=== PATIENT | male | born 1960 | race Caucasian/White ===

== ENCOUNTER 2018-11-20 18:10 | Inpatient (IN) | payer OTHER ==
[2018-11-20] MEDS ORDERED: ONDANSETRON 4 MG/2 ML VIAL ONE (18:53)
[2018-11-20] MEDS ORDERED: NA CHLORIDE 0.9% 1,000 ML ONE ×2 (18:53→22:13)
[2018-11-20 19:16] LABS: Absolute Lymphocytes (CBC) 0.7 K/uL (0.7-4.9); Basophils % 0.8 % (0-1.3); Hematocrit 41.2 % (39.6-49.0); MPV 10.1 fL (7.6-11.3); RBC Red Blood Cell Count 4.27 M/uL (4.33-5.43)
[2018-11-20 19:25] LABS: Albumin 4.1 g/dL (3.4-5.0); Bilirubin Direct 0.3 mg/dL (0-0.2); Bilirubin Total 1.2 mg/dL (0.2-1.0); Potassium 4.3 mmol/L (3.5-5.1); Protein, Total 7.2 g/dL (6.4-8.2)
--- NOTE | 2018-11-20 19:52 | RAD REPORT ---
EXAM DESCRIPTION: CT - Stone Protocol - 11/20/2018 7:39 pm CLINICAL HISTORY: Flank pain. ABD PAIN COMPARISON: Abdomen Pelvis Wo Contrast dated 06/17/2016 TECHNIQUE: Axial images were obtained without oral or IV contrast. Lack of contrast limits solid org an and vascular assessment. The [id number] spans the entirety of the system partially obscuring uppermost abdomen and lung bases. Coronal reformatted images were obtained and reviewed. All CT scans are performed using dose optimization technique as appropriate and may include automated exposure control or mA/KV adjustment according to patient size. FINDINGS: Small left pleural effusion. Imaged portions of the liver and spleen show no suspicious findings on non-contrast imaging. The panc reas and adrenal glands are normal. No pathologic lymphadenopathy in the abdomen or pelvis. No urinary tract stones or obstructive uropathy. No bowel obstruction, free air, free fluid or abscess. Normal appendix noted. Mild lumbar degenerative changes. IMPRESSION: No urinary tract stones or obstructive uropathy.
--- NOTE | 2018-11-20 20:25 | ER ---
Nurse's Notes [facility] Name: Mc Reeder Age: 58 yrs Sex: Male : 1960 Arrival Date: 11/20/2018 Time: 18:13 Bed 18 Private MD: Gucci Anderson H Diagnosis: Epigastric pain;Abnormal serum enzyme levels Presentation: 11/20 18:25 Presenting complaint: Patient states: vomiting X 4 days, unable to tolerate fluids, iw can't hold hi pain medicine down, hx of chronic back pain, denies diarrhea, denies fever, +chills, dark urine yesterday, also c/o heartburn pain and gurgling in his stomach, c/o fatigue and general weakness. Transition of care: patient was not received from another setting of care. Onset of symptoms was November 16, 2018. Risk Assessment: Do you want to hurt yourself or someone else? Patient reports no desire to harm self or others. Initial Sepsis Screen: Does the patient meet any 2 criteria? HR > 90 bpm. No. Patient's initial sepsis screen is negative. Does the patient have a suspected source of infection? No. Patient's initial sepsis screen is negative. Care prior to arrival: None. 18:25 Method Of Arrival: Ambulatory iw 18:25 Acuity: JENNIFFER 3 iw Triage Assessment: 18:34 General: Appears in no apparent distress. Behavior is calm, cooperative, appropriate tw2 for age. Pain: Complains of pain in abdomen. GI: Reports lower abdominal pain, upper abdominal pain, nausea, vomiting. Historical: - Allergies: 18:30 Demerol; iw - Home Meds: 18:30 [place] 10-325 mg Oral tab 1 tab every 4 hours [Active]; tizanidine 4 mg Oral tab 1.5 iw tabs three times a day [Active]; Amitriptyline Oral once daily [Active]; - PMHx: 18:30 constipation; CVA; heart disease; High Cholesterol; Hypertension; MRSA; Myocardial iw infarction; Pneumonia; Severe Back Pain; - PSHx: 18:30 Heart stents; iw - Immunization history:: Adult Immunizations up to date. - Social history:: Smoking status: Patient/guardian denies using tobacco. - Ebola Screening: : Patient negative for fever greater than or equal to 101.5 degrees Fahrenheit, and additional compatible Ebola Virus Disease symptoms Patient denies exposure to infectious person Patient denies travel to an Ebola-affected area in the 21 days before illness onset No symptoms or risks identified at this time. Screenin:32 Abuse screen: Denies threats or abuse. Nutritional screening: No deficits noted. tw2 Tuberculosis screening: No symptoms or risk factors identified. Fall Risk None identified. Assessment: 18:35 General: Appears in no apparent distress. Behavior is calm, cooperative, appropriate tw2 for age. Pain: Complains of pain in abdomen. Neuro: Level of Consciousness is awake, alert, obeys commands, Oriented to person, place, time, situation. Cardiovascular: Heart tones S1 S2 Patient's skin is warm and dry. Respiratory: Airway is patent Respiratory effort is even, unlabored, Respiratory pattern is regular, symmetrical, Breath sounds are clear bilaterally. GI: Abdomen is round non-distended, Bowel sounds present X 4 quads. Reports intolerance of fluids, intolerance of food, nausea, vomiting. : No signs and/or symptoms were reported regarding the genitourinary system. EENT: No signs and/or symptoms were reported regarding the EENT system. Derm: No signs and/or symptoms reported regarding the dermatologic system. Musculoskeletal: Range of motion: intact in all extremities. 19:15 Reassessment: Patient appears in no apparent distress at this time. Patient and/or cc3 family updated on plan of care and expected duration. Pain level reassessed. Patient is alert, oriented x 3, equal unlabored respirations, skin warm/dry/pink. Received this male patient from morning shift HERBIE Sabillon as a case of vomiting and abdominal pain. With IV cannula gauge 20 at the right ACV with ongoing IVF bolus of NS 1L infusing well. General: Appears in no apparent distress. comfortable, Behavior is calm, cooperative, appropriate for age. Pain: Complains of pain in abdomen. Neuro: Level of Consciousness is awake, alert, obeys commands, Oriented to person, place, time, situation, Appropriate for age. Cardiovascular: Heart tones S1 S2 present Capillary refill < 3 seconds in bilateral fingers Patient's skin is warm and dry. Respiratory: Airway is patent Respiratory effort is even, unlabored, Respiratory pattern is regular, symmetrical, Breath sounds are clear bilaterally. GI: Abdomen is round non-distended, Bowel sounds present X 4 quads. : No signs and/or symptoms were reported regarding the genitourinary system. EENT: No signs and/or symptoms were reported regarding the EENT system. Derm: Skin is intact, is healthy with good turgor, Skin is pink, warm \T\ dry. normal. Musculoskeletal: Circulation, motion, and sensation intact. Range of motion: intact in all extremities. 19:28 Reassessment: Patient taken by medical record technician to their department by wheelchair. cc3 19:50 Reassessment: Patient came back from CT scan department, awaiting result. cc3 20:30 Reassessment: Patient appears in no apparent distress at this time. Patient and/or cc3 family updated on plan of care and expected duration. Pain level reassessed. Patient is alert, oriented x 3, equal unlabored respirations, skin warm/dry/pink. Discharge order is hold as patient still complains of epigastric pain, new orders made and carried out. 21:17 Reassessment: Patient appears in no apparent distress at this time. Patient and/or cc3 family updated on plan of care and expected duration. Pain level reassessed. Patient is alert, oriented x 3, equal unlabored respirations, skin warm/dry/pink. 22:25 Reassessment: Patient appears in no apparent distress at this time. Patient and/or cc3 family updated on plan of care and expected duration. Pain level reassessed. Patient is alert, oriented x 3, equal unlabored respirations, skin warm/dry/pink. 23:15 Reassessment: Patient appears in no apparent distress at this time. Patient and/or cc3 family updated on plan of care and expected duration. Pain level reassessed. Patient is alert, oriented x 3, equal unlabored respirations, skin warm/dry/pink. Room available in 416, called for report but was told that the nurse who will receive will just call me back. Patient states feeling better. Patient states symptoms have improved. 23:50 Reassessment: Patient appears in no apparent distress at this time. Patient and/or cc3 family updated on plan of care and expected duration. Pain level reassessed. Patient is alert, oriented x 3, equal unlabored respirations, skin warm/dry/pink. Report called and handed over to HERBIE Hannon for continuity of care and management. Patient states feeling better. Patient states symptoms have improved. 11/21 00:09 Reassessment: Patient appears in no apparent distress at this time. Patient and/or cc3 family updated on plan of care and expected duration. Pain level reassessed. Patient is alert, oriented x 3, equal unlabored respirations, skin warm/dry/pink. Patient left ER for admission vitally stable by stretcher escorted by document image technician Amy. No valuables left in the patient's room. Patient denies pain at this time. Patient states feeling better. Patient states symptoms have improved. Vital Signs: 11/20 18:30 BP 166 / 113; Pulse 112; Resp 18 S; Temp 97.7(O); Pulse Ox 98% on R/A; Weight 81.65 kg; iw Height 5 ft. 6 in. (167.64 cm); Pain 9/10; 19:14 BP 146 / 95; Pulse 105; Resp 20 S; Temp 97.6(O); Pulse Ox 96% on R/A; cc3 20:45 BP 158 / 109; Pulse 109; Resp 17 S; Pulse Ox 97% on R/A; Pain 8/10; cc3 21:30 BP 160 / 111; Pulse 109; Resp 20 S; Pulse Ox 96% on R/A; cc3 22:41 BP 156 / 105; Pulse 106; Resp 18 S; Pulse Ox 97% on R/A; Pain 3/10; cc3 23:45 BP 155 / 101; Pulse 103; Resp 17 S; Pulse Ox 97% on R/A; Pain 3/10; cc3 18:30 Body Mass Index 29.05 (81.65 kg, 167.64 cm) iw ED Course: 18:13 Patient arrived in ED. mr 18:14 Gucci Anderson DO is Private Physician. mr 18:16 Bed in low position. Call light in reach. tw2 18:27 Ori Allan MD is Attending Physician. gs 18:29 Triage completed. iw 18:30 Arm band placed on. iw 18:32 Ramandeep Soares, HERBIE is Primary Nurse. tw2 18:56 Inserted saline lock: 20 gauge in right antecubital area, using aseptic technique. tw2 ,using aseptic technique. per HERBIE Amato Blood collected. 19:03 Primary Nurse role handed off by Ramandeep Soares RN tw2 19:03 Report given to HERBIE Verma. tw2 19:06 Luci Schneider is Primary Nurse. cc3 19:39 CT Stone Protocol In Process Unspecified. EDMS 21:51 Ashley Callahan MD is Hospitalizing Provider. 11/21 00:10 No provider procedures requiring assistance completed. Patient admitted, IV remains in cc3 place. Administered Medications: 11/20 18:55 Drug: NS 0.9% 1000 ml Route: IV; Rate: 1 bolus; Site: right antecubital; tw2 20:00 Follow up: Response: No adverse reaction; IV Status: Completed infusion; IV Intake: cc3 1000ml 18:55 Drug: Zofran 4 mg Route: IVP; Site: right antecubital; tw2 19:15 Follow up: Response: No adverse reaction; Nausea is decreased cc3 20:30 Drug: Pepcid 20 mg Route: IVP; Site: right antecubital; cc3 21:30 Follow up: Response: No adverse reaction; Pain is unchanged, physician notified cc3 22:08 CANCELLED (Other Intervention Used; patient took 2 tabs of baby aspirin at 1700H cc3 today): Aspirin Chewable Tablet 324 mg PO once; 81 mg tablets x 4 22:10 Drug: Aspirin Chewable Tablet 162 mg Route: PO; cc3 23:21 Follow up: Response: No adverse reaction; Marked relief of symptoms; Pain is decreased cc3 22:15 Drug: Dilaudid 1 mg {Note: RASS 0.} Route: IVP; Site: right antecubital; cc3 23:21 Follow up: Response: No adverse reaction; Pain is decreased; RASS: Alert and Calm (0) cc3 22:16 Drug: NS 0.9% 1000 ml Route: IV; Rate: 125 ml/hr; Site: right antecubital; cc3 23:50 Follow up: Response: No adverse reaction; IV Status: Infusion continued upon admission cc3 Intake: 20:00 IV: 1000ml; Total: 1000ml. cc3 Outcome: 20:24 Discharge ordered by . gs 21:52 Decision to Hospitalize by Provider. gs 23:50 Admitted to [facility] accompanied by tech, via stretcher, room 416, with chart, Report cc3 called to HERBIE Hannon 23:50 Condition: stable cc3 23:50 Instructed on the need for admit, Demonstrated understanding of instructions. 11/21 00:09 Patient left the ED. cc3 Signatures: Dispatcher [employer] Anali Hayward Luz Kelly, RN HERBIE iw Ramandeep Soares RN RN tw2 Ori Allan MD MD gs Cordel, Charlene cc3 Corrections: (The following items were deleted from the chart) 11/20 20:25 Reassessment: Patient appears in no apparent distress at this time. Patient cc3 and/or family updated on plan of care and expected duration. Pain level reassessed. Patient is alert, oriented x 3, equal unlabored respirations, skin warm/dry/pink. cc3 11/21 22:41 BP 156 / 105; Pulse 106bpm; Resp 18bpm; Spontaneous; Pulse Ox 97% RA; cc3 cc3 11/21 00:11/20 20:45 BP 158 / 109; Pulse 109bpm; Resp 17bpm; Spontaneous; Pulse Ox 97% RA; cc3 cc3
--- NOTE | 2018-11-20 20:25 | EDPHYS ---
Physician Documentation [facility] Name: Mc Reeder Age: 58 yrs Sex: Male : 1960 Arrival Date: 11/20/2018 Time: 18:13 Bed 18 Private MD: Gucci Anderson H ED Physician Ori Allan HPI: 11/20 20:19 This 58 yrs old Male presents to ER via Ambulatory with complaints of gs Vomiting. 20:19 The patient presents to the emergency department with nausea, vomiting. Onset: The gs symptoms/episode began/occurred yesterday. Possible causes: unknown. The symptoms are aggravated by nothing. The symptoms are alleviated by nothing. Associated signs and symptoms: Pertinent positives: abdominal pain, Pertinent negatives: fever, GI bleeding. Severity of symptoms: At their worst the symptoms were moderate in the emergency department the symptoms are unchanged. The patient has experienced similar episodes in the past, a few times. The patient has not recently seen a physician. Historical: - Allergies: 18:30 Demerol; iw - Home Meds: 18:30 [place] 10-325 mg Oral tab 1 tab every 4 hours [Active]; tizanidine 4 mg Oral tab 1.5 iw tabs three times a day [Active]; Amitriptyline Oral once daily [Active]; - PMHx: 18:30 constipation; CVA; heart disease; High Cholesterol; Hypertension; MRSA; Myocardial iw infarction; Pneumonia; Severe Back Pain; - PSHx: 18:30 Heart stents; iw - Immunization history:: Adult Immunizations up to date. - Social history:: Smoking status: Patient/guardian denies using tobacco. - Ebola Screening: : Patient negative for fever greater than or equal to 101.5 degrees Fahrenheit, and additional compatible Ebola Virus Disease symptoms Patient denies exposure to infectious person Patient denies travel to an Ebola-affected area in the 21 days before illness onset No symptoms or risks identified at this time. ROS: 20:19 All other systems are negative. gs Exam: 20:19 Head/Face: Normocephalic, atraumatic. Eyes: Pupils equal round and reactive to light, gs extra-ocular motions intact. Lids and lashes normal. Conjunctiva and sclera are non-icteric and not injected. Cornea within normal limits. Periorbital areas with no swelling, redness, or edema. ENT: Nares patent. No nasal discharge, no septal abnormalities noted. Tympanic membranes are normal and external auditory canals are clear. Oropharynx with no redness, swelling, or masses, exudates, or evidence of obstruction, uvula midline. Mucous membranes moist. Neck: Trachea midline, no thyromegaly or masses palpated, and no cervical lymphadenopathy. Supple, full range of motion without nuchal rigidity, or vertebral point tenderness. No Meningismus. Chest/axilla: Normal chest wall appearance and motion. Nontender with no deformity. No lesions are appreciated. Cardiovascular: Regular rate and rhythm with a normal S1 and S2. No gallops, murmurs, or rubs. Normal PMI, no JVD. No pulse deficits. Respiratory: Lungs have equal breath sounds bilaterally, clear to auscultation and percussion. No rales, rhonchi or wheezes noted. No increased work of breathing, no retractions or nasal flaring. Back: No spinal tenderness. No costovertebral tenderness. Full range of motion. Skin: Warm, dry with normal turgor. Normal color with no rashes, no lesions, and no evidence of cellulitis. MS/ Extremity: Pulses equal, no cyanosis. Neurovascular intact. Full, normal range of motion. Neuro: Awake and alert, GCS 15, oriented to person, place, time, and situation. Cranial nerves II-XII grossly intact. Motor strength 5/5 in all extremities. Sensory grossly intact. Cerebellar exam normal. Normal gait. 20:19 Constitutional: The patient appears alert, awake, uncomfortable. 20:19 Abdomen/GI: Palpation: mild abdominal tenderness, in all quadrants, rebound tenderness, is not appreciated. Vital Signs: 18:30 BP 166 / 113; Pulse 112; Resp 18 S; Temp 97.7(O); Pulse Ox 98% on R/A; Weight 81.65 kg; iw Height 5 ft. 6 in. (167.64 cm); Pain 9/10; 19:14 BP 146 / 95; Pulse 105; Resp 20 S; Temp 97.6(O); Pulse Ox 96% on R/A; cc3 20:45 BP 158 / 109; Pulse 109; Resp 17 S; Pulse Ox 97% on R/A; Pain 8/10; cc3 21:30 BP 160 / 111; Pulse 109; Resp 20 S; Pulse Ox 96% on R/A; cc3 22:41 BP 156 / 105; Pulse 106; Resp 18 S; Pulse Ox 97% on R/A; Pain 3/10; cc3 23:45 BP 155 / 101; Pulse 103; Resp 17 S; Pulse Ox 97% on R/A; Pain 3/10; cc3 18:30 Body Mass Index 29.05 (81.65 kg, 167.64 cm) iw MDM: 18:45 Patient medically screened. 20:19 Differential diagnosis: Nonspecific abd pain, diverticulitis, viral gastroenteritis, gs gastroenteritis. Data reviewed: vital signs, nurses notes. Counseling: I had a detailed discussion with the patient and/or guardian regarding: the historical points, exam findings, and any diagnostic results supporting the discharge/admit diagnosis, lab results, radiology results, the need for outpatient follow up. Response to treatment: the patient's symptoms have markedly improved after treatment, the patient's condition has returned to base line, and as a result, I will discharge patient. 11/20 18:44 Order name: Basic Metabolic Panel; Complete Time: 20:12 11/20 18:44 Order name: CBC with Diff 11/20 18:44 Order name: Hepatic Function; Complete Time: 20:12 11/20 18:44 Order name: Lipase; Complete Time: 20:12 11/20 18:45 Order name: Urine Microscopic Only; Complete Time: 21:45 11/20 20:16 Order name: Urine Dipstick--Ancillary (enter results); Complete Time: 21:56 [facility] 11/20 20:46 Order name: Troponin (emerg Dept Use Only); Complete Time: 21:45 11/20 22:09 Order name: CBC Smear Scan [facility] 11/20 22:28 Order name: Basic Metabolic Panel [facility] 11/20 22:28 Order name: Basic Metabolic Panel [facility] 11/20 22:28 Order name: CBC with Automated Diff [facility] 11/20 22:28 Order name: CBC with Automated Diff [facility] 11/20 22:28 Order name: Lipid Profile [facility] 11/20 22:28 Order name: Lipid Profile [facility] 11/20 18:45 Order name: CT Stone Protocol; Complete Time: 20:12 11/20 22:28 Order name: CONS Physician Consult [facility] 11/20 22:28 Order name: CONS Physician Consult [facility] 11/20 22:28 Order name: Heart Healthy [facility] 11/20 22:28 Order name: Echo with Doppler [facility] 11/20 22:28 Order name: Echo with Doppler [facility] 11/20 22:28 Order name: Troponin I [facility] 11/20 22:28 Order name: Troponin I [facility] 11/20 22:28 Order name: Troponin I [facility] 11/20 18:44 Order name: IV Saline Lock; Complete Time: 18:55 11/20 18:44 Order name: Labs collected and sent; Complete Time: 18:55 11/20 18:45 Order name: Urine Dipstick-Ancillary (obtain specimen); Complete Time: 20:44 11/20 20:29 Order name: EKG - Nurse/Tech; Complete Time: 20:43 11/20 22:28 Order name: EKG Electrocardiogram [facility] 11/20 22:28 Order name: EKG Electrocardiogram [facility] Administered Medications: 18:55 Drug: NS 0.9% 1000 ml Route: IV; Rate: 1 bolus; Site: right antecubital; tw2 20:00 Follow up: Response: No adverse reaction; IV Status: Completed infusion; IV Intake: cc3 1000ml 18:55 Drug: Zofran 4 mg Route: IVP; Site: right antecubital; tw2 19:15 Follow up: Response: No adverse reaction; Nausea is decreased cc3 20:30 Drug: Pepcid 20 mg Route: IVP; Site: right antecubital; cc3 21:30 Follow up: Response: No adverse reaction; Pain is unchanged, physician notified cc3 22:08 CANCELLED (Other Intervention Used; patient took 2 tabs of baby aspirin at 1700H cc3 today): Aspirin Chewable Tablet 324 mg PO once; 81 mg tablets x 4 22:10 Drug: Aspirin Chewable Tablet 162 mg Route: PO; cc3 23:21 Follow up: Response: No adverse reaction; Marked relief of symptoms; Pain is decreased cc3 22:15 Drug: Dilaudid 1 mg {Note: RASS 0.} Route: IVP; Site: right antecubital; cc3 23:21 Follow up: Response: No adverse reaction; Pain is decreased; RASS: Alert and Calm (0) cc3 22:16 Drug: NS 0.9% 1000 ml Route: IV; Rate: 125 ml/hr; Site: right antecubital; cc3 23:50 Follow up: Response: No adverse reaction; IV Status: Infusion continued upon admission cc3 Disposition: 11/20/18 21:52 Hospitalization ordered by Ashley Callahan for Observation. Preliminary diagnosis are Epigastric pain, Abnormal serum enzyme levels. - Bed requested for Telemetry/MedSurg (observation). - Status is Observation. cc3 - Condition is Stable. - Problem is new. - Symptoms have improved. UTI on Admission? No Signatures: Dispatcher [employer] EDMS Luz Kelly RN RN Maria L Sullivan RN RN Ramandeep Soares RN RN 2 Ori Allan MD MD Luci Schneider cc3 Corrections: (The following items were deleted from the chart) 20:29 20:24 11/20/2018 20:24 Discharged to Home. Impression: Vomiting. Condition is Stable. gs Forms are Medication Reconciliation Form, Thank You Letter, Antibiotic Education, Prescription Opioid Use. Follow up: Private Physician; When: 2 - 3 days; Reason: Re-evaluation by your physician. 22:08 21:52 Aspirin Chewable Tablet 324 mg PO once; 81 mg tablets x 4 ordered. cc3 22:08 22:06 Aspirin Chewable Tablet 324 mg PO once; 81 mg tablets x 4 ordered. 3 cc3 22:56 21:52 Hospitalization Ordered by Ashley Callahan MD for Observation. Preliminary cg diagnosis is Epigastric pain; Abnormal serum enzyme levels. Bed requested for Telemetry/MedSurg (observation). Status is Observation. Condition is Stable. Problem is new. Symptoms have improved. UTI on Admission? No. 11/21 00:09 11/20 22:56 11/20/2018 21:52 Hospitalization Ordered by Ashley Callahan MD for cc3 Observation. Preliminary diagnosis is Epigastric pain; Abnormal serum enzyme levels. Bed requested for Telemetry/MedSurg (observation). Status is Observation. Condition is Stable. Problem is new. Symptoms have improved. UTI on Admission? No.
[2018-11-20] MEDS ORDERED: FAMOTIDINE 20 MG/2 ML VIAL IV ONE (20:34)
[2018-11-20 20:38] LABS: Urine Bacteria <20 /HPF (NONE SEEN); Urine Culture Reflex Order NOT NEEDED; Urine RBC <5 /HPF (NONE SEEN)
[2018-11-20 21:51] LABS: Urine Blood 1+ (NEG); Urine Glucose NEGATIVE (NEG); Urine Protein 3+ (NEG); Urine Specific Gravity >1.030 (1.005-1.030)
[2018-11-20 22:09] LABS: Blood Morphology Comment NOT SEEN (NOT SEEN); Urine White Blood Cell Casts OK
[2018-11-20] MEDS ORDERED: ALPRAZOLAM 0.25 MG TABLET PO PRN (22:13)
[2018-11-20] MEDS ORDERED: HYDROMORPHONE HCL 1 MG/ML INJ ONE (22:13)
[2018-11-20] MEDS ORDERED: ASPIRIN 81 MG CHEWABLE TABLET ONE (22:13)
[2018-11-20] MEDS ORDERED: ACETAMINOPHEN 500 MG TAB PO PRN (22:13)
[2018-11-20 22:17] LABS: Platelet Estimate ADEQ
[2018-11-21] MEDS ORDERED: METOPROLOL TARTRATE 5 MG/5 ML INJ IV STA (01:02)
[2018-11-21] MEDS ORDERED: SODIUM CHLORIDE 0.9% 10ML INJ IV PRN (01:02)
[2018-11-21] MEDS ORDERED: PANTOPRAZOLE 40 MG INJ IVP ONE (01:30)
[2018-11-21 02:11] VITALS: BMI 26.9
[2018-11-21] MEDS: MORPHINE 4 MG/ML SYR IV PRN ×4 (03:27→21:51)
[2018-11-21 03:41] LABS: Absolute Lymphocytes (CBC) 0.8 K/uL (0.7-4.9); Basophils % 0.5 % (0-1.3); Hematocrit 38.4 % (39.6-49.0); Lymphocytes % 6.6 % (15.3-44.8); MPV 10.6 fL (7.6-11.3)
[2018-11-21 03:48] LABS: Potassium 4.4 mmol/L (3.5-5.1)
[2018-11-21] MEDS: METOPROLOL TAR 25 MG TAB PO SCH ×2 (05:46→16:11)
[2018-11-21] MEDS ORDERED: LOSARTAN POTASSIUM 50 MG TABLET PO SCH (09:00)
[2018-11-21] MEDS ORDERED: METOPROLOL TAR 50 MG TAB PO SCH (09:00)
[2018-11-21] MEDS: ASPIRIN EC 81 MG TAB PO SCH (09:07)
[2018-11-21] MEDS: ONDANSETRON 4 MG/2 ML VIAL IV PRN ×3 (09:17→21:30)
--- NOTE | 2018-11-21 09:23 | EKG ---
Test Date: 2018-11-20 Test Time: 20:39:14 Assisted Sales Representative: JAMAL MEASUREMENT RESULTS: Intervals: Rate: 111 TX: 136 QRSD: 126 QT: 334 QTc: 454 [place]: P: 42 TX: 136 QRS: 118 T: 38 INTERPRETIVE STATEMENTS: Sinus tachycardia with premature ventricular complexes Right bundle branch block Inferior infarct, age undetermined Abnormal ECG Compared to ECG 06/18/2016 08:56:48 Atrial premature complex(es) now present Sinus rhythm no longer present Myocardial infarct finding still present Electronically Signed On 11-21-18 09:22:50 CDT by Toni Victoria
[2018-11-21] MEDS ORDERED: LACTULOSE 20 GM/30 ML UCUP PO PRN (09:44)
[2018-11-21] MEDS ORDERED: D5 0.45 NS 1,000 ML IV SCH (10:00)
--- NOTE | 2018-11-21 10:24 | ECHO ---
HEIGHT: 5 ft 7 in WEIGHT: 171 lb 9.6 oz DATE OF STUDY: 11/21/[address]: Ashley Callahan MD 2-DIMENSIONAL: YES M.MODE: YES DOPPLER: YES COLOR FLOW: YES TDS: NO PORTABLE: NO DEFINITY: NO BUBBLE STUDY: NO DIAGNOSIS: CHEST PAIN CARDIAC HISTORY: CATHERIZATION: YES SURGERY: NO PROSTHETIC VALVE: NO PACEMAKER: NO MEASUREMENTS (cm) DIASTOLIC (NORMALS) SYSTOLIC (NORMALS) IVSd 1.1 (0.6-1.2) LA Diam 4.3 (1.9-4.0) LVEF 28% LVIDd 5.3 (3.5-5.7) LVIDs 4.6 (2.0-3.5) %FS 13% LVPWd 1.0 (0.6-1.2) Ao Diam 2.4 (2.0-3.7) 2 DIMENSIONAL ASSESSMENT: RIGHT ATRIUM: DILATED LEFT ATRIUM: DILATED RIGHT VENTRICLE: DILATED LEFT VENTRICLE: DILATED TRICUSPID VALVE: NORMAL MITRAL VALVE: NORMAL PULMONIC VALVE: NORMAL AORTIC VALVE: NORMAL PERICARDIAL EFFUSION: NONE AORTIC ROOT: NORMAL LEFT VENTRICULAR WALL MOTION: INFERIOR, POSTERIOR AKINESIS. DOPPLER/COLOR FLOW: MILD AORTIC AND MITRAL REGURGITATION. MODERATE TRICUSPID REGURGITATION. ESTIMATED RIGHT VENTRICULAR SYSTOLIC PRESSURE 75mmHg (SEVERE PULMONARY HYPERTENSION). COMMENTS: SEVERELY DEPRESSED LEFT VENTRICULAR EJECTION FRACTION WITH INFERIOR POSTERIOR AKINESIS. FOUR CHAMBER DILATATION. MILD AORTIC AND MITRAL REGURGITATION. MODERATE TRICUSPID REGURGITATION. SEVERE PULMONARY HYPERTENSION. TECHNOLOGIST: BURTON ARTEAGA
--- NOTE | 2018-11-21 10:31 | P.PN ---
Subjective Date of Service: 11/21/18 Chief Complaint: Abdominal pain/Chest pain Subjective: Improving Patient seen and examined at bedside. Chart reviewed and case discussed with nursing staff. Pain improved. Nausea improved with medications. Not wanting to eat or drink . No BM x2 days, states thats his normal Review of Systems 10-point ROS is otherwise unremarkable Physical Examination - Vital Signs Temperature: 98.4 F Blood Pressure: 134/95 Pulse: 76 Respirations: 18 Pulse Ox (%): 97 - Physical Exam General: Alert, In no apparent distress, Oriented x3 HEENT: Atraumatic, PERRLA, EOMI Neck: Supple, JVD not distended Respiratory: Clear to auscultation bilaterally, Normal air movement Cardiovascular: Regular rate/rhythm, Normal S1 S2 Gastrointestinal: Normal bowel sounds, Tenderness Musculoskeletal: No tenderness Integumentary: No rashes Neurological: Normal speech, Normal tone, Normal affect Lymphatics: No axilla or inguinal lymphadenopathy - Studies Laboratory Data (last 24 hrs) 11/20/18 20:50: Triglycerides 86, Cholesterol 135, HDL Cholesterol 37 L, Cholesterol/HDL Ratio 3.65 11/20/18 18:50: WBC 10.8, Hgb 13.9, Hct 41.2, Plt Count 191 11/20/18 18:50: Sodium 143, Potassium 4.3, BUN 22 H, Creatinine 1.34 H, Glucose 112 H, Total Bilirubin 1.2 H, AST 17, ALT 28, Alkaline Phosphatase 75, Lipase 43 L Assessment And Plan - Current Problems (Diagnosis) (1) LEVY (acute kidney injury) Onset Date: 06/17/16 Current Visit: No Status: Resolved (2) Chest pain Onset Date: 06/17/16 Current Visit: No Status: Acute Qualifiers: Chest pain type: unspecified Qualified Code(s): R07.9 - Chest pain, unspecified (3) Colitis Onset Date: 06/17/16 Current Visit: No Status: Acute (4) Hyperlipidemia Current Visit: No Status: Chronic Qualifiers: Hyperlipidemia type: unspecified Qualified Code(s): E78.5 - Hyperlipidemia , unspecified (5) Hypertension Current Visit: No Status: Chronic Qualifiers: Hypertension type: essential hypertension - Plan -Continue gentle hydration -Cardiology consulted, recommendations appreciated. -Echo ordered, pending -monitor electrolytes -Monitor via tele -continue IV Protonix lactulose as needed Disposition: Continue monitoring on the floor. Anticipate discharge home in the next 24 hr.
[2018-11-21] MEDS: D5 0.45 NS 1,000 ML IV SCH (10:57)
--- NOTE | 2018-11-21 12:30 | P.HP ---
Certification for Inpatient Patient admitted to: Observation With expected LOS: <2 Midnights Patient will require the following post-hospital care: None Practitioner: I am a practitioner with admitting privileges, knowledge of patient current condition, hospital course, and medical plan of care. Services: Services provided to patient in accordance with Admission requirements found in Title 42 Section 412.3 of the Code of Federal Regulations Patient History Date of Service: 11/20/18 Reason for admission: Abdominal pain/Chest pain History of Present Illness: Patient is a 58-year-old gentleman who came into the hospital with epigastric tenderness. He felt like he was having reflux. However, he did have some chest discomfort and some mild elevation of his troponin. There was no radiation of his pain. It was alleviated after he got medicine for acid reflux. However, in light of the fact that he had some EKG changes as well as minimal elevation of his troponin and multiple risk factors we decided to admit him to the hospital for further evaluation. Patient has had a history of coronary artery disease and he has had 5 stents placed in the past. He will be admitted to be ruled out for acute coronary syndrome. If this is negative then he should be able to go home with a PPI daily and GI follow-up. Allergies meperidine HCl [From Demerol] Allergy (Verified 11/21/18 00:31) loss of cosciousness Home Medications: ALPRAZolam [Xanax*] 1 tab PO BEDTIME PRN 11/21/18 Aspirin Chewable [Aspirin Chewable*] 162 mg PO DAILY 11/21/18 Hydrocodone 10/APAP 325 [[place] 10/325*] 1 tab PO Q6HP PRN 11/21/18 Lactulose [Cephulac*] 30 ml PO DAILY PRN 11/21/18 Tizanidine HCl 4 mg PO TID 11/21/18 - Past Medical/Surgical History Has patient received pneumonia vaccine in the past: Yes Diabetic: No -: HTN -: 5- [place] with stents -: anxiety -: neuropathy -: staph infection/MRSA May 2013 -: fungal infection fingernails/toe nails -: hyperlipidemia -: arthritis -: CVA in 2013 -: Double pneumonia -: L Eye vision loss -: torn meniscus in L knee hasn ot been repaired -: cardiac stents X5 -: back injections chronic back pain - Family History Mother Medical History: Other (see notes) Notes: [place] - Social History Smoking Status: Never smoker Alcohol use: No CD- Drugs: Yes Place of Residence: Home Review of Systems 10-point ROS is otherwise unremarkable Physical Examination - Vital Signs Temperature: 98.4 F Blood Pressure: 134/95 Pulse: 76 Respirations: 18 Pulse Ox (%): 97 - Physical Exam General: Alert, In no apparent distress, Oriented x3 HEENT: Atraumatic, Normocephalic Neck: Supple, 2+ carotid pulse no bruit, JVD not distended Respiratory: Clear to auscultation bilaterally, Normal air movement Cardiovascular: Regular rate/rhythm, Normal S1 S2, Systolic murmur Gastrointestinal: Normal bowel sounds, Hypoactive, Soft and benign, Non- distended Musculoskeletal: No clubbing, No swelling Integumentary: No rashes Neurological: Normal gait, Normal speech, Normal strength at 5/5 x4 extr, Normal tone, Sensation intact, Cranial nerves 3-12 intact - Studies Laboratory Data (last 24 hrs) 11/20/18 20:50: Triglycerides 86, Cholesterol 135, HDL Cholesterol 37 L, Cholesterol/HDL Ratio 3.65 11/20/18 18:50: WBC 10.8, Hgb 13.9, Hct 41.2, Plt Count 191 11/20/18 18:50: Sodium 143, Potassium 4.3, BUN 22 H, Creatinine 1.34 H, Glucose 112 H, Total Bilirubin 1.2 H, AST 17, ALT 28, Alkaline Phosphatase 75, Lipase 43 L Assessment & Plan - Problems (Diagnosis) (1) Chest pain, rule out acute myocardial infarction Current Visit: Yes Status: Acute (2) Gastritis Current Visit: Yes Status: Acute (3) Chest pain Onset Date: 06/17/16 Current Visit: No Status: Acute Qualifiers: Chest pain type: unspecified Qualified Code(s): R07.9 - Chest pain, unspecified (4) Coronary artery disease Current Visit: No Status: Acute Qualifiers: Coronary Disease-Associated Artery/Lesion type: [place] artery (5) Non-hemorrhagic cerebrovascular accident Current Visit: No Status: Acute (6) Hyperlipidemia Current Visit: No Status: Chronic Qualifiers: Hyperlipidemia type: unspecified Qualified Code(s): E78.5 - Hyperlipidemia , unspecified (7) Hypertension Current Visit: No Status: Chronic Qualifiers: Hypertension type: essential hypertension - Plan 1. Serial troponins and EKG 2. Cardiology consultation 3. Echocardiogram 4. Anti-platelet therapy, anti coagulation, beta-james, statin, and O2 as needed 5. PPI 6. Nitro p.r.n. 7. GI/DVT prophylaxis Discharge Plan: Home Plan to discharge in: 48 Hours - Advance Directives Does patient have a Living Will: Yes Does patient have a Durable POA for Healthcare: Yes - Code Status/Comfort Care Code Status Assessed: Yes Code Status: Full Code Critical Care: No Time Spent Managing PTS Care (In Minutes): 45
--- NOTE | 2018-11-21 13:57 | CON ---
Identification: A 58-year-old man. Chief Complaint: Nausea, anorexia, vomiting for 4 days. Reason For Cardiology Consult: History of CAD. Troponins at 0.05. History Of Present Illness: Mr. Reeder has a history of CAD with stents and is rather mild well-cont rolled CAD. Has not had any chest pain for many years. He came to the hospital because of 4 days of abdominal pain, vomiting, and anorexia. He has not eaten anything in several days. He has a drug i ntolerance to meperidine. His outpatient medications are tizanidine, lactulose, hydrocodone, alprazo razo, aspirin. He does not use tobacco, he did in the past. Physical Examination: General: 5 feet 7 inches, 171 pounds. HEENT: Normal. Lungs: Clear. Abdomen: Soft, mildly tender. No rebound, guarding, or rigidity. Extremities: Appear to be well perfused. Laboratory Data: His electrocardiogram does not show any abnormalities to suggest an acute coronary syndrome. Troponins are 0.05. Impression: This is not an acute coronary syndrome, it is probably a viral gastrointestinal disease and it seems to be very common in our area now. Plan: I think he should be on clear liquids, IV fluids. His diet should be changed. He is on a ful l diet. He is not eating a bit of it, not drinking anything either, so he needs IV fluids to avoid d ehydration until he is eating again. I think an assessment of his abdomen, either through Dr. Wood or a GI consult would be very alfaro to do. I do not consider this an acute coronary syndrome. ADDISON/FRANCISCO JAVIER Voice ID: [id number] Report ID: [id number]
[2018-11-21] MEDS: ENOXAPARIN 30 MG/0.3 ML SQ SCH ×2 (16:11→16:14)
[2018-11-21] MEDS: SACUBITRIL/VALSARTAN 24/26 MG TAB PO SCH (21:29)
[2018-11-22] MEDS: MORPHINE 4 MG/ML SYR IV PRN ×3 (05:52→20:30)
[2018-11-22] MEDS: ONDANSETRON 4 MG/2 ML VIAL IV PRN (05:53)
[2018-11-22] MEDS: METOPROLOL TAR 25 MG TAB PO SCH ×2 (05:54→18:28)
[2018-11-22] MEDS: SACUBITRIL/VALSARTAN 24/26 MG TAB PO SCH ×2 (08:52→20:30)
[2018-11-22] MEDS: ASPIRIN EC 81 MG TAB PO SCH (08:52)
[2018-11-22] MEDS: D5 0.45 NS 1,000 ML IV SCH (08:53)
[2018-11-22 10:57] LABS: Absolute Lymphocytes (CBC) 0.9 K/uL (0.7-4.9); Basophils % 0.7 % (0-1.3); Hematocrit 42.6 % (39.6-49.0); Lymphocytes % 6.7 % (15.3-44.8); RBC Red Blood Cell Count 4.45 M/uL (4.33-5.43)
--- NOTE | 2018-11-22 11:18 | PN ---
The patient was admitted to Dr. Ahmadi on 11/20/2018 with chest pain, was seen by Dr. Victoria on 2018. Today is 11/22/2018, patient was seen in followup. He has been in and out of atrial fibrillat ion. Echocardiogram that was done yesterday showed an ejection fraction of 28%, 4-chamber dilatation , severe pulmonary hypertension. The patient is already on Entresto and a beta-james. He will nee d to be anticoagulated. CT angiogram was ordered to rule out multiple pulmonary emboli to the lung c ausing his pulmonary hypertension. We will see how he does with Entresto, beta blockers, Lasix, anti coagulants, and decide on further therapy after the CT angiogram. He will probably eventually need h eart catheterization, serial echocardiogram prior to making any decisions regarding defibrillators. JOSE CRALOS Voice ID: [id number] Report ID: [id number]
[2018-11-22 11:19] LABS: Albumin 3.9 g/dL (3.4-5.0); Bilirubin Total 0.9 mg/dL (0.2-1.0); Potassium 4.1 mmol/L (3.5-5.1)
--- NOTE | 2018-11-22 11:45 | P.PN ---
Subjective Date of Service: 11/22/18 Chief Complaint: Abdominal pain/Chest pain Subjective: No C/O voiced, Improving Patient seen and examined at bedside. Chart reviewed and case discussed with nursing staff. Chest pain resolved. Abdominal pain resolved. Nausea improved with medications. States he would like something to eat this morning as he is feeling better. Review of Systems 10-point ROS is otherwise unremarkable Physical Examination - Vital Signs Temperature: 98.1 F Blood Pressure: 135/87 Pulse: 66 Respirations: 18 Pulse Ox (%): 96 - Physical Exam General: Alert, In no apparent distress HEENT: Atraumatic, PERRLA, EOMI Neck: Supple, JVD not distended Respiratory: Clear to auscultation bilaterally, Normal air movement Cardiovascular: Regular rate/rhythm, Normal S1 S2 Gastrointestinal: Normal bowel sounds, No tenderness Musculoskeletal: No tenderness Integumentary: No rashes Neurological: Normal speech, Normal tone, Normal affect Lymphatics: No axilla or inguinal lymphadenopathy Assessment And Plan - Current Problems (Diagnosis) (1) LEVY (acute kidney injury) Onset Date: 06/17/16 Current Visit: No Status: Resolved (2) Chest pain Onset Date: 06/17/16 Current Visit: No Status: Acute Qualifiers: Chest pain type: unspecified Qualified Code(s): R07.9 - Chest pain, unspecified (3) Colitis Onset Date: 06/17/16 Current Visit: No Status: Acute (4) Hyperlipidemia Current Visit: No Status: Chronic Qualifiers: Hyperlipidemia type: unspecified Qualified Code(s): E78.5 - Hyperlipidemia , unspecified (5) Hypertension Current Visit: No Status: Chronic Qualifiers: Hypertension type: essential hypertension - Plan -Continue gentle hydration -Cardiology consulted, recommendations appreciated. -Echo with 28% ejection fraction, global hypokinesis and severe pulmonary hypertension. -will continue medical management with interested, beta-james and anticoagulation. -he will likely need further outpatient cardiac catheterization. -CT ordered to evaluate for pulmonary embolism, pending -monitor electrolytes -Monitor via tele -continue IV Protonix and lactulose as needed Disposition: Continue monitoring on the floor. Anticipate discharge home in the next 24 hr.
--- NOTE | 2018-11-22 12:07 | RAD REPORT ---
EXAM DESCRIPTION: CT - Chest For Pe Angio - 11/22/2018 8:14 am CLINICAL HISTORY: pulm htn COMPARISON: Chest Single View dated 06/16/2016 TECHNIQUE: Dynamically enhanced 3 mm thick images of the chest were obtained during administration o f approximately 150mL Isovue 370 IV contrast. Coronal and oblique MIP reconstruction images were gene rated and reviewed. Exam utilizes a protocol to evaluate the pulmonary arterial tree. All CT scans are performed using dose optimization technique as appropriate and may include automated exposure control or mA/KV adjustment according to patient size. FINDINGS: No pulmonary emboli are identified. Pulmonary arteries are not enlarged. Aortic assessment is limited on a PE protocol. No aortic aneurysm. Scattered aortic calcifications ar e present with no centrally displaced calcifications. No pericardial thickening or effusion. No focal consolidation identified. Ground-glass opacities are present in the mid and upper lung field s. This is probably a mild edema. Alveolitis is possible but lesser in likelihood. No interstitial th ickening. Small right pleural effusion and small to moderate left pleural effusion noted. There is mi nimal lower lobe atelectasis on the left. No mediastinal or hilar suspicious masses. Heart size is borderline enlarged. No pericardial thickeni ng or effusion. Left ventricular detail is limited. Coronary artery and valve calcifications are pres ent. IMPRESSION: No pulmonary emboli. No pulmonary artery enlargement. Small right-side and small to moderate left-side pleural effusions. Upper lung field ground-glass opacities are likely a mild alveolar edema rather than alveolar infiltr ative process. No focal consolidation or mass lesion.
[2018-11-22] MEDS ORDERED: INFLUENZA VACCINE (for 3y+) 0.5 ML DOSE IMVAC ONE (15:00)
[2018-11-22] MEDS: ENOXAPARIN 30 MG/0.3 ML SQ SCH (18:28)
[2018-11-23] MEDS: D5 0.45 NS 1,000 ML IV SCH ×2 (03:00→04:03)
[2018-11-23] MEDS: MORPHINE 4 MG/ML SYR IV PRN ×4 (05:30→21:39)
[2018-11-23] MEDS: METOPROLOL TAR 25 MG TAB PO SCH ×2 (05:38→17:07)
--- NOTE | 2018-11-23 09:56 | PN ---
Mr. Reeder does not have evidence of pulmonary embolus. He was in and out of atrial fibrillation, ne w onset cardiomyopathy, so I want to initiate rivaroxaban therapy 15 mg. His GFR is right at the cut -off point where the dose would be 15 or 20, I would like to give 20. We will stop aspirin. Continu e the beta james and the Entresto, perhaps he could be discharged home tomorrow. We need to stop t he IV fluid to see if he tolerates the diet well. Probably do a heart catheterization and evaluate h im for defibrillator in a few months. It would be very nice to have a pulmonary consult and see what they think of the pulmonary hypertension. ADDISON/MODL Voice ID: [id number] Report ID: [id number]
[2018-11-23] MEDS: SACUBITRIL/VALSARTAN 24/26 MG TAB PO SCH ×2 (10:33→20:08)
--- NOTE | 2018-11-23 11:29 | P.PN ---
Subjective Date of Service: 11/23/18 Chief Complaint: Abdominal pain/Chest pain Subjective: Improving Patient seen and examined at bedside. Chart reviewed and case discussed with nursing staff. Chest pain resolved. Abdominal pain resolved. Nausea improved with medications. States he would like something to eat this morning as he is feeling better. Review of Systems 10-point ROS is otherwise unremarkable Physical Examination - Vital Signs Temperature: 97.8 F Blood Pressure: 139/76 Pulse: 59 Respirations: 18 Pulse Ox (%): 97 - Physical Exam General: Alert, In no apparent distress, Oriented x3 HEENT: Atraumatic, PERRLA, EOMI Neck: Supple, JVD not distended Respiratory: Clear to auscultation bilaterally, Normal air movement Cardiovascular: Regular rate/rhythm, Normal S1 S2 Gastrointestinal: Normal bowel sounds, No tenderness Musculoskeletal: No tenderness Integumentary: No rashes Neurological: Normal speech, Normal tone, Normal affect Lymphatics: No axilla or inguinal lymphadenopathy Assessment And Plan - Current Problems (Diagnosis) (1) LEVY (acute kidney injury) Onset Date: 06/17/16 Current Visit: No Status: Resolved (2) Chest pain Onset Date: 06/17/16 Current Visit: No Status: Acute Qualifiers: Chest pain type: unspecified Qualified Code(s): R07.9 - Chest pain, unspecified (3) Colitis Onset Date: 06/17/16 Current Visit: No Status: Acute (4) Hyperlipidemia Current Visit: No Status: Chronic Qualifiers: Hyperlipidemia type: unspecified Qualified Code(s): E78.5 - Hyperlipidemia , unspecified (5) Hypertension Current Visit: No Status: Chronic Qualifiers: Hypertension type: essential hypertension (6) Pulmonary hypertension Current Visit: Yes Status: Acute (7) CHF (congestive heart failure) Current Visit: Yes Status: Chronic Qualifiers: Heart failure type: combined systolic and diastolic Heart failure chronicity: acute on chronic Qualified Code(s): I50.43 - Acute on chronic combined systolic (congestive) and diastolic (congestive) heart failure (8) Coronary artery disease Current Visit: No Status: Acute Qualifiers: Coronary Disease-Associated Artery/Lesion type: [place] artery - Plan -Continue gentle hydration -Cardiology consulted, recommendations appreciated. -Echo with 28% ejection fraction, global hypokinesis and severe pulmonary hypertension. -will continue medical management with Entresto, beta-james and anticoagulation. -he will likely need further outpatient cardiac catheterization. -CT chest negative for pulmonary embolism -Pulmonolgoy conuslt for pulmonary hypertension -monitor electrolytes -Monitor via tele -continue IV Protonix and lactulose as needed Disposition: Continue monitoring on the floor. Anticipate discharge home in the next 24 hr. Discharge Plan: Home Plan to discharge in: 48 Hours
[2018-11-23] MEDS ORDERED: RIVAROXABAN 15 MG TABLET PO SCH (17:00)
[2018-11-23 17:30] VITALS: O2SAT 98
[2018-11-24] MEDS: MORPHINE 4 MG/ML SYR IV PRN ×2 (05:13→10:05)
[2018-11-24] MEDS: METOPROLOL TAR 25 MG TAB PO SCH (05:13)
--- NOTE | 2018-11-24 09:34 | P.CNS ---
Date of Consult: 11/24/18 Reason for Consult: Pulmonary hypertension Chief Complaint: Pulmonary hypertension History of Present Illness: Patient is a 58-year-old very pleasant man who started complaining of some abdominal discomfort associated with nausea vomiting came here to the emergency room and diagnosed with congestive heart failure although he denies any dyspnea 3 days prior to that he was actively mowing his lawn denies any chest pain. 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 and PA no family history apart from his brother having a heart attack he currently denies shortness of breath lower extremity edema Allergies meperidine HCl [From Demerol] Allergy (Verified 11/21/18 00:31) loss of cosciousness Home Medications: ALPRAZolam [Xanax*] 1 tab PO BEDTIME PRN 11/21/18 Aspirin Chewable [Aspirin Chewable*] 162 mg PO DAILY 11/21/18 Hydrocodone 10/APAP 325 [[place] 10/325*] 1 tab PO Q6HP PRN 11/21/18 Lactulose [Cephulac*] 30 ml PO DAILY PRN 11/21/18 Tizanidine HCl 4 mg PO TID 11/21/18 - Past Medical/Surgical History Diabetic: No -: HTN -: 5- [place] with stents -: anxiety -: neuropathy -: staph infection/MRSA May 2013 -: fungal infection fingernails/toe nails -: hyperlipidemia -: arthritis -: CVA in 2013 -: Double pneumonia -: L Eye vision loss -: torn meniscus in L knee hasn ot been repaired -: cardiac stents X5 -: back injections chronic back pain - Family History Mother Medical History: Other (see notes) Notes: [place] - Social History Smoking Status: Current every day smoker Alcohol use: No CD- Drugs: Yes Caffeine use: Yes Place of Residence: Home Review of Systems 10-point ROS is otherwise unremarkable Physical Examination Temp Pulse Resp BP Pulse Ox 98.7 F 75 16 121/66 98 11/24/18 04:00 11/24/18 05:13 11/24/18 05:43 11/24/18 05:13 11/24/18 05:43 General: Alert, Oriented x3 HEENT: Atraumatic Neck: Supple Respiratory: Clear to auscultation bilaterally, Diminished, Crackles/rales Cardiovascular: No edema, Regular rate/rhythm, Normal S1 S2 Gastrointestinal: Normal bowel sounds, Soft and benign - Problems (1) Pulmonary hypertension Current Visit: Yes Status: Acute Plan: Patient is 58 years of age admitted with abdominal discomfort nausea vomiting he has dilated cardiomyopathy with associated secondary pulmonary hypertension there is no evidence of pulmonary emboli bilateral pleural effusions left greater than the right vital signs oxygenation satisfactory patient has mild chronic renal failure troponin mildly elevated 2D echo shows dilated cardiomyopathy severe pulmonary hypertension biventricular dilatation. This time I recommend optimizing is medical therapy with diuretics Arpan inhibitors Peter blockers as necessary schedule for a cardiac catheterization no treatment for pulmonary hypertension at this time
--- NOTE | 2018-11-24 09:46 | PN ---
I am going to recommended that Mr. Reeder be discharged home taking Entresto, Xarelto 15, metoprolol 50 b.i.d. Continue his other home medications as an outpatient and have follow up with us. We will repeat an echocardiogram with Rubina for several months. If his EF does not improve, he w ill need a defibrillator. He is to do a cardiac cath in about a month. He is doing much better with medical treatment for congestive heart failure. ADDISON/FRANCISCO JAVIER Voice ID: [id number] Report ID: [id number]
[2018-11-24] MEDS: SACUBITRIL/VALSARTAN 24/26 MG TAB PO SCH (10:03)
[2018-11-24 13:13] VITALS: BP 142/88; TEMP 97
--- NOTE | 2018-11-25 13:27 | P.DS ---
Admission Date: 11/23/18 Discharge Date: 11/24/18 Disposition: ROUTINE DISCHARGE Discharge Condition: GOOD Reason for Admission: Pulmonary hypertension Consultations: Cardiology Pulmonology - Problems (1) LEVY (acute kidney injury) Onset Date: 06/17/16 Status: Resolved (2) Chest pain Onset Date: 06/17/16 Status: Acute Qualifiers: Chest pain type: unspecified Qualified Code(s): R07.9 - Chest pain, unspecified (3) Colitis Onset Date: 06/17/16 Status: Acute (4) Hyperlipidemia Status: Chronic Qualifiers: Hyperlipidemia type: unspecified Qualified Code(s): E78.5 - Hyperlipidemia , unspecified (5) Hypertension Status: Chronic Qualifiers: Hypertension type: essential hypertension (6) Pulmonary hypertension Status: Acute (7) CHF (congestive heart failure) Status: Chronic Qualifiers: Heart failure type: combined systolic and diastolic Heart failure chronicity: acute on chronic Qualified Code(s): I50.43 - Acute on chronic combined systolic (congestive) and diastolic (congestive) heart failure (8) Coronary artery disease Status: Acute Qualifiers: Coronary Disease-Associated Artery/Lesion type: [place] artery Brief History of Present Illness: Patient is a 58-year-old gentleman who came into the hospital with epigastric tenderness. He felt like he was having reflux. However, he did have some chest discomfort and some mild elevation of his troponin. There was no radiation of his pain. It was alleviated after he got medicine for acid reflux. However, in light of the fact that he had some EKG changes as well as minimal elevation of his troponin and multiple risk factors we decided to admit him to the hospital for further evaluation. Patient has had a history of coronary artery disease and he has had 5 stents placed in the past. He will be admitted to be ruled out for acute coronary syndrome. If this is negative then he should be able to go home with a PPI daily and GI follow-up. Hospital Course: Patient was admitted for some chest discomfort/epigastric tenderness. He was kept NPO, given IV fluids. Cardiology was consulted. Echocardiogram was done which showed 20% ejection fraction with global hypokinesis and severe pulmonary hypertension. His medications were adjusted and patient was started on address still a beta-james anticoagulation. Pulmonology was consulted for pulmonary hypertension, no changes made to medications by pulmonology. It was recommended that patient will likely need further outpatient cardiac catheterization/management. He otherwise did well throughout the stay. Prior to discharge, he was tolerating an oral diet, ambulating well, was symptom- free. His diagnoses and treatment plan was explained to him, all questions were answered and he verbalized understanding. He was then discharged home in a safe and stable manner. He will follow up with cardiology as an outpatient. Vital Signs/Physical Exam: Temp Pulse Resp BP Pulse Ox 97.0 F 85 16 142/88 H 98 11/24/18 12:00 11/24/18 12:00 11/24/18 12:00 11/24/18 12:00 11/24/18 12:00 General: Alert, In no apparent distress HEENT: Atraumatic, PERRLA, EOMI Neck: Supple, JVD not distended Respiratory: Clear to auscultation bilaterally, Normal air movement Cardiovascular: Regular rate/rhythm, Normal S1 S2 Gastrointestinal: Normal bowel sounds, No tenderness Musculoskeletal: No tenderness Integumentary: No rashes Neurological: Normal speech, Normal tone, Normal affect Lymphatics: No axilla or inguinal lymphadenopathy Laboratory Data at Discharge: WBC 13.4 K/uL (4.3-10.9) H D 11/22/18 10:45 Hgb 14.2 g/dL (13.6-17.9) 11/22/18 10:45 Hct 42.6 % (39.6-49.0) 11/22/18 10:45 Plt Count 221 K/uL (152-406) D 11/22/18 10:45 Sodium 141 mmol/L (136-145) 11/22/18 10:45 Potassium 4.1 mmol/L (3.5-5.1) 11/22/18 10:45 BUN 19 mg/dL (7-18) H 11/22/18 10:45 Creatinine 1.41 mg/dL (0.55-1.3) H 11/22/18 10:45 Glucose 143 mg/dL (74-106) H 11/22/18 10:45 Total Bilirubin 0.9 mg/dL (0.2-1.0) 11/22/18 10:45 AST 14 U/L (15-37) L 11/22/18 10:45 ALT 25 U/L (12-78) 11/22/18 10:45 Alkaline Phosphatase 71 U/L (45-117) 11/22/18 10:45 Troponin I 0.04 ng/mL (0.0-0.045) 11/21/18 09:02 Triglycerides 86 mg/dL (<150) 11/20/18 20:50 Cholesterol 135 mg/dL (<200) 11/20/18 20:50 HDL Cholesterol 37 mg/dL (40-60) L 11/20/18 20:50 Cholesterol/HDL Ratio 3.65 11/20/18 20:50 Lipase 43 U/L (73-393) L 11/20/18 18:50 Home Medications: ALPRAZolam [Xanax*] 1 tab PO BEDTIME PRN 11/21/18 Hydrocodone 10/APAP 325 [[place] 10325*] 1 tab PO Q6HP PRN 11/21/18 Lactulose [Cephulac*] 30 ml PO DAILY PRN 11/21/18 Tizanidine HCl 4 mg PO TID 11/21/18 Metoprolol Tartrate 50 mg PO BID #60 tablet 11/24/18 Rivaroxaban [Xarelto*] 15 mg PO DAILY AT SUPPER tablet 11/24/18 Sacubitril/Valsartan [Entresto 24 mg-26 mg Tablet] 1 tab PO BID tab 11/24/18 New Medications: Metoprolol Tartrate 50 mg PO BID #60 tablet Diet: AHA Activity: Ad mira Followup: Gucci Anderson DO, DO [Primary Care Provider] - (call to schedule appointment ) Toni Victoria MD [ACTIVE - CAN ADMIT] - (call to schedule appointment) Time spent managing pt's care (in minutes): 55
== END 2018-11-24 13:56 | disposition home or self-care (01) | DRG 292 ==
LOC: ER 18:10 → ERHOLD 22:13 → 4TH 23:54 → OBSVTOIN 11-23 08:18
PROVIDERS: ADMIT Hospitalist; ATTEND Hospitalist
DX: I50.43 Acute on chronic combined systolic (congestive) and diastolic (congestive) heart failure (principal); N17.9 Acute kidney failure, unspecified; I11.0 Hypertensive heart disease with heart failure; I27.20 Pulmonary hypertension, unspecified; I48.91 Unspecified atrial fibrillation; F41.9 Anxiety disorder, unspecified; G62.9 Polyneuropathy, unspecified; E78.5 Hyperlipidemia, unspecified; I25.10 Atherosclerotic heart disease of native coronary artery without angina pectoris
CPT/HCPCS: 36415; 71275; 74176; 76377; 80048; 80053; 80061; 80076; 81003; 81015; 83690; 84484; 85025; 93005; 93306; 96361; 96374; 96375; 99285; C9113; G0378; J1170; J1650; J2405; J7030; Q9967

== ENCOUNTER 2019-11-18 11:10 | Inpatient (IN) | payer OTHER ==
[2019-11-18] MEDS ORDERED: AMIODARONE IN DEXTROSE,ISO-OSM 360 MG/200 ML BAG IV ONE (11:25)
--- NOTE | 2019-11-18 11:25 | EDPHYS ---
Physician Documentation [facility] Name: Mc Reeder Age: 59 yrs Sex: Male : 1960 Arrival Date: 11/18/2019 Time: 11:11 Bed 3 Private MD: ED Physician Gui Gaytan HPI: 11/17 11:13 This 59 yrs old Male presents to ER via Unassigned with complaints of passed rn out. 11:13 The patient has experienced syncope. Onset: The symptoms/episode began/occurred just rn prior to arrival. Duration: This was a single episode. Associated injury: The patient did not suffer any apparent associated injury. Associated signs and symptoms: Pertinent positives: chest pain, dizziness. Current symptoms: Dizziness and chest pain. The patient has not experienced similar symptoms in the past. Reports dizziness, palpitations, and nausea, began [employer]IC[employer]. Dr. Shah called ahead of his arrival, states had syncopal episode at clinic, ECG showed Ventricular tachycardia per Dr. Shah, EMS gave 150 amiodarone, Dr. Shah requests drip started and admitted to hospital. Patient reports mild chest pain that began a while ago as well.. Historical: - Allergies: 11:26 Demerol; bp - Home Meds: 11:26 Xarelto 15 mg oral tab 1 tab daily [Active]; Entresto 24-26 mg oral tab 1 tab twice a bp day [Active]; metoprolol tartrate 50 mg Oral tab 1 tab once daily [Active]; simvastatin 80 mg Oral tab 80 mg daily [Active]; Lasix 40 mg Oral tab 1 tab once daily [Active]; [place] 10-325 mg Oral tab 1 tab every 4 hours [Active]; tizanidine 4 mg Oral tab 2 tabs three times a day [Active]; amitriptyline 10 mg oral tab 1 tab nightly [Active]; lactulose 10 gram/15 mL oral soln 30 mL [Active]; - PMHx: 11:26 Myocardial infarction; Pneumonia; Severe Back Pain; MRSA; constipation; CVA; heart bp disease; High Cholesterol; Hypertension; CHF; - Immunization history:: Adult Immunizations up to date. - Social history:: Smoking status: unknown. - Family history:: not pertinent. - Hospitalizations: : No recent hospitalization is reported. ROS: 11:13 Constitutional: Negative for fever, chills, and weight loss, Eyes: Negative for injury, rn pain, redness, and discharge, Neck: Negative for injury, pain, and swelling, Cardiovascular: Negative for edema Respiratory: Negative for shortness of breath, cough, wheezing, and pleuritic chest pain, Abdomen/GI: + nausea MS/Extremity: Negative for injury and deformity, Skin: Negative for injury, rash, and discoloration, Neuro: Negative for headache, numbness, tingling, and seizure. Exam: 11:13 Constitutional: This is a well developed, well nourished patient who is awake, alert, rn following commands Head/Face: Normocephalic, atraumatic. Cardiovascular: Irregular, tachycardic Respiratory: Mild tachypnea, no retractions Abdomen/GI: soft, non-tender Skin: Warm, no cyanosis MS/ Extremity: Pulses equal, no cyanosis. Neurovascular intact. Full, normal range of motion. Equal circumference. Neuro: Awake and alert, GCS 15, oriented to person, place, time, and situation. Cranial nerves II-XII grossly intact. Motor strength 5/5 in all extremities. Sensory grossly intact. 11:22 ECG was reviewed by the Attending Physician. rn Vital Signs: 11:27 BP 120 / 94; Pulse 169; Resp 17; Temp 97.5; Pulse Ox 88% on R/A; Weight 91.63 kg; bp Height 5 ft. 7 in. (170.18 cm); 11:47 BP 127 / 93; Pulse 159; Resp 20; Pulse Ox 97% on 4 lpm NC; em 12:10 BP 122 / 91; Pulse 142; Resp 24; Pulse Ox 96% ; bp 13:29 BP 119 / 91; Pulse 147; Resp 20; Pulse Ox 97% on 4 lpm NC; em 14:00 BP 121 / 89; Pulse 104; Resp 18; Pulse Ox 99% on 4 lpm NC; em 15:00 BP 112 / 79; Pulse 92; Resp 22; Pulse Ox 97% on 4 lpm NC; em 16:00 BP 120 / 80; Pulse 99; Resp 22; Pulse Ox 97% on 4 lpm NC; em 11:27 Body Mass Index 31.64 (91.63 kg, 170.18 cm) bp MDM: 11:12 Patient medically screened. rn 11:22 Differential Diagnosis: cardiac arrhythmia, vasovagal episode, AMI. Data reviewed: rn vital signs, nurses notes, EKG. 11:52 ED course: chest pain has resolved. rn 12:35 Counseling: I had a detailed discussion with the patient and/or guardian regarding: the rn historical points, exam findings, and any diagnostic results supporting the discharge/admit diagnosis, lab results, radiology results, the need for further work-up and treatment in the hospital. Admission orders: after a detailed discussion of the patient's condition and case, the admit orders are written by me. 14:06 ED course: Pt converted to sinus rythym.. rn 11/17 11:13 Order name: Basic Metabolic Panel; Complete Time: 12:14 rn 11/17 11:13 Order name: CBC with Diff; Complete Time: 11:47 rn 11/17 11:13 Order name: Magnesium; Complete Time: 12:14 11/17 11:13 Order name: NT PRO-BNP; Complete Time: 12:14 11/17 11:13 Order name: PT-INR; Complete Time: 11:47 11/17 11:13 Order name: Troponin (emerg Dept Use Only); Complete Time: 12:14 rn 11/17 11:13 Order name: XRAY Chest (1 view); Complete Time: 11:54 rn 11/17 13:14 Order name: Basic Metabolic Panel [facility] 11/17 13:14 Order name: Basic Metabolic Panel [facility] 11/17 13:14 Order name: Troponin I [facility] 11/17 13:14 Order name: Troponin I [facility] 11/17 13:14 Order name: Troponin I [facility] 11/17 13:15 Order name: CBC with Automated Diff [facility] 11/17 13:15 Order name: CBC with Automated Diff [facility] 11/17 11:13 Order name: EKG; Complete Time: 11: rn 11/17 11:13 Order name: Cardiac monitoring; Complete Time: : rn 11/17 11:13 Order name: EKG - Nurse/Tech; Complete Time: : 11/17 11:13 Order name: IV Saline Lock; Complete Time: : rn 11/17 11:13 Order name: Labs collected and sent; Complete Time: : rn 11/17 13:15 Order name: CONS Physician Consult [facility] 11/17 13:15 Order name: Heart Healthy [facility] 11/17 13:15 Order name: Echo with Doppler [facility] 11/17 13:15 Order name: EKG Electrocardiogram [facility] 11/17 13:15 Order name: EKG Electrocardiogram [facility] 11/17 13:15 Order name: EKG Electrocardiogram [facility] 11/17 11:13 Order name: O2 Per Protocol; Complete Time: : rn 11/17 11:13 Order name: O2 Sat Monitoring; Complete Time: : rn 11/17 11:35 Order name: Labs - recollect needed: recollect c7; Complete Time: 11:46 bd EC: Rate is 176 beats/min. Rhythm is irregularly irregular. Left axis deviation noted. QRS rn is positive in lead I and negative in lead aVF. QRS interval is normal. QT interval is normal. No Q waves. ST Segment is depressed in leads V1, V2, V3. Clinical impression: Atrial Fibrillation and Strain, rate-related changes. Interpreted by me. Reviewed by me. Administered Medications: 11:17 Drug: amiodarone 900 mg, D5W 500 ml Route: IVPB; Rate: 1 mg/min; Site: left antecubital;em 17:28 Follow up: Response: No adverse reaction; IV Status: Completed infusion em 11:24 Drug: Aspirin Chewable Tablet 324 mg Route: PO; dm5 11:46 Follow up: Response: No adverse reaction em 11:39 Drug: NS 0.9% 500 ml Route: IV; Rate: bolus; Site: right forearm; em 12:40 Follow up: IV Status: Completed infusion; IV Intake: 500ml em 12:40 Drug: Metoprolol 25 mg Route: PO; em 13:45 Follow up: Response: No adverse reaction; Marked relief of symptoms; Cardiac rhythm em changed 13:27 Drug: Independence 10 mg-325 mg 1 tabs Route: PO; em 16:11 Follow up: Response: No adverse reaction; Marked relief of symptoms; Pain is decreased; em RASS: Alert and Calm (0) Disposition: 11/18/19 11:25 Hospitalization ordered by Ashley Callahan for Inpatient Admission. Preliminary diagnosis are Ventricular tachycardia, Syncope and collapse, Chest pain, unspecified, Paroxysmal atrial fibrillation. - Bed requested for Intensive Care Unit. - Status is Inpatient Admission. iw - Condition is Fair. - Problem is new. - Symptoms have improved. Critical care time excluding procedures: 12:31 Critical care time: Bedside Care: 25 minutes, Consultation: 5 minutes. Total time: 30 rn minutes Signatures: Dispatcher [employer] Cyndee Hood Deana, RN RN dm5 Jacob Bartholomew, RN RN Luz Manzo, RN RN iw Gui Gaytan MD MD rn Peltier, Sancho, RN RN bp Corrections: (The following items were deleted from the chart) 12:35 11:25 Hospitalization Ordered by Ashley Callahan MD for Inpatient Admission. Preliminary rn diagnosis is Ventricular tachycardia; Syncope and collapse; Chest pain, unspecified. Bed requested for Intensive Care Unit. Status is Inpatient Admission. Condition is Fair. Problem is new. Symptoms have improved. rn 17:28 12:35 11/18/2019 11:25 Hospitalization Ordered by Ashley Callahan MD for Inpatient iw Admission. Preliminary diagnosis is Ventricular tachycardia; Syncope and collapse; Chest pain, unspecified; Paroxysmal atrial fibrillation. Bed requested for Intensive Care Unit. Status is Inpatient Admission. Condition is Fair. Problem is new. Symptoms have improved. rn
--- NOTE | 2019-11-18 11:25 | ER ---
Nurse's Notes [facility] Name: Mc Reeder Age: 59 yrs Sex: Male : 1960 Arrival Date: 11/18/2019 Time: 11:11 Bed 3 Private MD: Diagnosis: Ventricular tachycardia;Syncope and collapse;Chest pain, unspecified;Paroxysmal atrial fibrillation Presentation: 11/17 11:27 Chief complaint: EMS states: SYNCOPE 2/2 AFIB/RVR AT CARDIO OFFICE. Coronavirus screen: bp At this time, the client does not indicate any symptoms associated with coronavirus-19. Ebola Screen: No symptoms or risks identified at this time. Initial Sepsis Screen: Does the patient meet any 2 criteria? HR > 90 bpm. No. Patient's initial sepsis screen is negative. Does the patient have a suspected source of infection? No. Patient's initial sepsis screen is negative. Risk Assessment: Do you want to hurt yourself or someone else? Patient reports no desire to harm self or others. Onset of symptoms was November 18, 2019 at 11:00. Care prior to arrival: Medication(s) given: AMIODARONE 150 MG IVP IV initiated. 22 GA, in the left antecubital area. 11:27 Method Of Arrival: EMS: [facility] bp 11:27 Acuity: JENNIFFER 2 bp Triage Assessment: 11:27 General: Appears distressed, uncomfortable, Behavior is cooperative, appropriate for bp age, anxious, restless. Pain: Complains of pain in chest. EENT: No deficits noted. Neuro: No deficits noted. Cardiovascular: Rhythm is atrial fibrillation with rapid ventricular response. Respiratory: Reports shortness of breath. GI: No signs and/or symptoms were reported involving the gastrointestinal system. : No signs and/or symptoms were reported regarding the genitourinary system. Derm: No deficits noted. Musculoskeletal: No deficits noted. Historical: - Allergies: 11:26 Demerol; bp - Home Meds: 11:26 Xarelto 15 mg oral tab 1 tab daily [Active]; Entresto 24-26 mg oral tab 1 tab twice a bp day [Active]; metoprolol tartrate 50 mg Oral tab 1 tab once daily [Active]; simvastatin 80 mg Oral tab 80 mg daily [Active]; Lasix 40 mg Oral tab 1 tab once daily [Active]; [place] 10-325 mg Oral tab 1 tab every 4 hours [Active]; tizanidine 4 mg Oral tab 2 tabs three times a day [Active]; amitriptyline 10 mg oral tab 1 tab nightly [Active]; lactulose 10 gram/15 mL oral soln 30 mL [Active]; - PMHx: 11:26 Myocardial infarction; Pneumonia; Severe Back Pain; MRSA; constipation; CVA; heart bp disease; High Cholesterol; Hypertension; CHF; - Immunization history:: Adult Immunizations up to date. - Social history:: Smoking status: unknown. - Family history:: not pertinent. - Hospitalizations: : No recent hospitalization is reported. Screenin:10 Abuse screen: Denies threats or abuse. Denies injuries from another. Nutritional bp screening: No deficits noted. Tuberculosis screening: No symptoms or risk factors identified. Fall Risk None identified. Assessment: 11:15 General: SEE TRIAGE NOTE. bp 11:26 General: Appears in no apparent distress. comfortable, Behavior is calm, cooperative, em appropriate for age. Pain: Complains of pain in mid-sternal area Pain does not radiate. Pain currently is 2 out of 10 on a pain scale. Neuro: Level of Consciousness is awake, alert, obeys commands, Oriented to person, place, time, situation, Appropriate for age. Cardiovascular: Capillary refill < 3 seconds Rhythm is atrial fibrillation with rapid ventricular response. Respiratory: Airway is patent Respiratory effort is even, unlabored, Respiratory pattern is regular, symmetrical. GI: Reports nausea. Derm: Skin is intact, Skin is clammy, Skin is pale, Skin temperature is cool. Musculoskeletal: Capillary refill is > 3 seconds, is sluggish, in bilateral fingers. Range of motion: intact in all extremities. 12:10 Reassessment: PT REMAINS AFIB/RVR ON MONITOR, AMIO INFUSION IN PROCESS. bp 13:15 Reassessment: reports lower back pain that is chronic, states back pain is 10/10, takes em [place] 10's at home, Dr. Gaytan notified, received new medication order. 13:45 Reassessment: pt converted back into sinus rhythm, repeat EKG done, notified Dr. Gaytan. em 15:26 Reassessment: Patient appears in no apparent distress at this time. Patient and/or em family updated on plan of care and expected duration. Pain level reassessed. Patient is alert, oriented x 3, equal unlabored respirations, skin warm/dry/pink. Patient states feeling better. Vital Signs: 11:27 BP 120 / 94; Pulse 169; Resp 17; Temp 97.5; Pulse Ox 88% on R/A; Weight 91.63 kg; bp Height 5 ft. 7 in. (170.18 cm); 11:47 BP 127 / 93; Pulse 159; Resp 20; Pulse Ox 97% on 4 lpm NC; em 12:10 BP 122 / 91; Pulse 142; Resp 24; Pulse Ox 96% ; bp 13:29 BP 119 / 91; Pulse 147; Resp 20; Pulse Ox 97% on 4 lpm NC; em 14:00 BP 121 / 89; Pulse 104; Resp 18; Pulse Ox 99% on 4 lpm NC; em 15:00 BP 112 / 79; Pulse 92; Resp 22; Pulse Ox 97% on 4 lpm NC; em 16:00 BP 120 / 80; Pulse 99; Resp 22; Pulse Ox 97% on 4 lpm NC; em 11:27 Body Mass Index 31.64 (91.63 kg, 170.18 cm) bp ED Course: 11:10 Maintain EMS IV. Dressing intact. Good blood return noted. Site clean \T\ dry. Gauge \T\ bp site: 22 GAUGE LEFT AC. 11:10 Patient has correct armband on for positive identification. Bed in low position. Call bp light in reach. Side rails up X2. 11:11 Patient arrived in ED. rn 11:11 Gui Gaytan MD is Attending Physician. rn 11:15 Inserted saline lock: 18 gauge in right forearm, using aseptic technique. Blood bp collected. 11:19 Jacob Bartholomew, RN is Primary Nurse. em 11:24 Ashley Callahan MD is Hospitalizing Provider. rn 11:27 Arm band placed on. bp 11:29 Triage completed. bp 11:36 XRAY Chest (1 view) In Process Unspecified. EDMS Administered Medications: 11:17 Drug: amiodarone 900 mg, D5W 500 ml Route: IVPB; Rate: 1 mg/min; Site: left antecubital;em 17:28 Follow up: Response: No adverse reaction; IV Status: Completed infusion em 11:24 Drug: Aspirin Chewable Tablet 324 mg Route: PO; dm5 11:46 Follow up: Response: No adverse reaction em 11:39 Drug: NS 0.9% 500 ml Route: IV; Rate: bolus; Site: right forearm; em 12:40 Follow up: IV Status: Completed infusion; IV Intake: 500ml em 12:40 Drug: Metoprolol 25 mg Route: PO; em 13:45 Follow up: Response: No adverse reaction; Marked relief of symptoms; Cardiac rhythm em changed 13:27 Drug: [place] 10 mg-325 mg 1 tabs Route: PO; em 16:11 Follow up: Response: No adverse reaction; Marked relief of symptoms; Pain is decreased; em RASS: Alert and Calm (0) Intake: 12:40 IV: 500ml; Total: 500ml. em Outcome: 11:25 Decision to Hospitalize by Provider. rn 17:28 Patient left the ED. iw Signatures: Dispatcher [employer] Candice Mera RN RN dmJacob De Los Santos RN RN em Williams, Irene, RN RN iw Nieto, Roman, MD MD rn Peltier, Brian, RN RN bp
[2019-11-18 11:26] LABS: Absolute Lymphocytes (CBC) 1.5 K/uL (0.7-4.9); Basophils % 0.8 % (0-1.3); Hematocrit 41.5 % (39.6-49.0); Lymphocytes % 11.8 % (15.3-44.8); RBC Red Blood Cell Count 4.32 M/uL (4.33-5.43)
[2019-11-18 11:30] LABS: Protime INR 1.57
[2019-11-18] MEDS ORDERED: ASPIRIN 81 MG CHEWABLE TABLET ONE (11:33)
--- NOTE | 2019-11-18 11:53 | RAD REPORT ---
EXAM DESCRIPTION: RAD - Chest Single View - 11/18/2019 11:36 am CLINICAL HISTORY: CHEST PAIN Chest pain. COMPARISON: Chest Single View dated 06/16/2016; CHEST SINGLE VIEW dated 05/11/2014; CHEST SINGLE VIEW dated 05/08/2014; CHEST SINGLE VIEW dated 06/15/2013 FINDINGS: Portable technique limits examination quality. Mild interstitial pulmonary edema is seen. The heart is moderately enlarged in size. No displaced fra ctures. IMPRESSION: Mild CHF.
[2019-11-18 12:07] LABS: Magnesium 1.9 mg/dL (1.8-2.4); Potassium 4.1 mmol/L (3.5-5.1); Troponin (Emerg Dept Use Only) 0.03 ng/mL (0.0-0.045)
[2019-11-18] MEDS ORDERED: METOPROLOL TAR 25 MG TAB ONE (12:36)
[2019-11-18] MEDS ORDERED: ACETAMINOPHEN 500 MG TAB PO PRN (13:04)
[2019-11-18] MEDS ORDERED: HYDROCODONE/APAP 10/325 TAB ONE ×2 (13:37→20:06)
[2019-11-18] MEDS ORDERED: AMIODARONE HCL 450 MG in D5W 241 ML IV SCH (14:00)
[2019-11-18] MEDS ORDERED: ALPRAZOLAM 0.25 MG TABLET PO PRN (16:13)
[2019-11-18 17:58] VITALS: BMI 31.6
[2019-11-18] MEDS: ONDANSETRON 4 MG/2 ML VIAL IV PRN (18:25)
[2019-11-18] MEDS ORDERED: FUROSEMIDE 20 MG/ 2ML VIAL ONE (18:35)
[2019-11-18] MEDS ORDERED: ONDANSETRON 4 MG/2 ML VIAL ONE (18:36)
[2019-11-18] MEDS ORDERED: FUROSEMIDE 20 MG/ 2ML VIAL IV ONE (19:00)
--- NOTE | 2019-11-18 19:24 | RAD REPORT ---
EXAM DESCRIPTION: RAD - Chest Single View - 11/18/2019 7:01 pm CLINICAL HISTORY: chf COMPARISON: Portable November 17 TECHNIQUE: AP portable chest image was obtained 11/18/2019 7:01 pm . FINDINGS: Interstitial thickening again noted. Patchy airspace opacification seen. Lung parenchyma n ot clearly different from the examination performed 7 hours earlier. The CHF/volume overload pattern persists. Resuscitation paddle, oxygen tubing and cardiac leads overlie the chest. No new tube or line. Heart and vasculature are normal. No measurable pleural effusion and no pneumothorax. No acute bony abnormality seen. No acute aortic findings suspected. IMPRESSION: Mild CHF/volume overload pattern is evident and stable.
[2019-11-18] MEDS: HYDROCODONE/APAP 10/325 TAB PO PRN (20:02)
[2019-11-18] MEDS: SACUBITRIL/VALSARTAN 24/26 MG TAB PO SCH (20:05)
[2019-11-18] MEDS ORDERED: ENOXAPARIN 100 MG/ML SYR SQ ONE (20:06)
[2019-11-18] MEDS ORDERED: ENOXAPARIN 100 MG/ML SYR SQ SCH (21:00)
[2019-11-18] MEDS: BENZONATATE 100 MG CAP PO PRN (21:56)
[2019-11-18] MEDS: MORPHINE 4 MG/ML SYR IV PRN (22:00)
[2019-11-18] MEDS ORDERED: MORPHINE 4 MG/ML SYR ONE (22:11)
--- NOTE | 2019-11-18 23:16 | P.PN ---
Date of Service: 11/18/19 Was notified by nurse that patient's troponin went from 0.03 on admission to 5.42 on 2nd draw. Cardiology was notified-Dr. Shah. Per Cardiology patient will likely undergo cardiac catheterization tomorrow. Continue to trend troponins. Patient is alert and oriented and in no distress.
[2019-11-19] MEDS ORDERED: FUROSEMIDE 20 MG/ 2ML VIAL ONE (00:26)
[2019-11-19] MEDS ORDERED: FUROSEMIDE 20 MG/ 2ML VIAL IV SCH (01:00)
[2019-11-19] MEDS: HYDROCODONE/APAP 10/325 TAB PO PRN ×3 (02:04→15:03)
[2019-11-19] MEDS ORDERED: HYDROCODONE/APAP 10/325 TAB ONE ×3 (02:10→15:13)
[2019-11-19 04:43] LABS: Absolute Lymphocytes (CBC) 1.2 K/uL (0.7-4.9); Basophils % 0.5 % (0-1.3); Hematocrit 38.6 % (39.6-49.0); Lymphocytes % 8.4 % (15.3-44.8); RBC Red Blood Cell Count 4.02 M/uL (4.33-5.43)
[2019-11-19 04:48] LABS: Potassium 4.9 mmol/L (3.5-5.1)
[2019-11-19] MEDS: FUROSEMIDE 40 MG/4 ML VIAL IV SCH ×2 (08:40→16:56)
[2019-11-19] MEDS: SACUBITRIL/VALSARTAN 24/26 MG TAB PO SCH (08:40)
[2019-11-19] MEDS: ONDANSETRON 4 MG/2 ML VIAL IV PRN ×2 (08:43→15:03)
[2019-11-19] MEDS ORDERED: ASPIRIN EC 81 MG TAB PO ONE (08:45)
[2019-11-19] MEDS ORDERED: FUROSEMIDE 40 MG/4 ML VIAL ONE ×2 (08:45→16:59)
[2019-11-19] MEDS ORDERED: ONDANSETRON 4 MG/2 ML VIAL ONE ×2 (08:54→15:13)
[2019-11-19] MEDS ORDERED: ASPIRIN EC 81 MG TAB PO SCH (09:00)
--- NOTE | 2019-11-19 09:27 | P.HP ---
Certification for Inpatient Patient admitted to: Inpatient With expected LOS: >2 Midnights Patient will require the following post-hospital care: None Practitioner: I am a practitioner with admitting privileges, knowledge of patient current condition, hospital course, and medical plan of care. Services: Services provided to patient in accordance with Admission requirements found in Title 42 Section 412.3 of the Code of Federal Regulations Patient History Date of Service: 11/18/19 Reason for admission: Syncope and collapse; ventricular tachyarrhythmia; cardiomyopathy History of Present Illness: Patient is a 59-year-old gentleman who came to the hospital with chest discomfort. He was at his cardiology physician's office 1 he had a syncopal event. He collapsed and was unresponsive for about 5-10 min. EMS was called out and patient slowly started coming around prior to EMS arrival. Was brought into the emergency room and because of his medical history there was concern for sustained ventricular tachycardia. Patient started on amiodarone drip and monitored on the ekg monitor tech. Patient was having some chest discomfort and was short of breath and coughing persistently. Chest x-ray revealed CHF and pulmonary edema. Patient was started on diuretics in his coughing has improved. Chest pain has improved as well with pain medication. Will admit the patient to the hospital with cardiology consultation. Cardiac workup will be obtained from cardiology office in further workup pending. Allergies meperidine HCl [From Demerol] Allergy (Verified 11/21/18 00:31) loss of cosciousness Home Medications: Hydrocodone 10/APAP 325 [[place] 10/325*] 1 tab PO Q4H PRN 11/21/18 Lactulose [Cephulac*] 30 ml PO DAILY PRN 11/21/18 Tizanidine HCl 2 tab PO TID 11/21/18 Rivaroxaban [Xarelto*] 15 mg PO DAILY AT SUPPER tablet 11/24/18 Sacubitril/Valsartan [Entresto 24 mg-26 mg Tablet] 1 tab PO BID tab 11/24/18 Amitriptyline [Elavil*] 1 tab PO BEDTIME 11/18/19 Furosemide [Lasix] 40 mg PO DAILY 11/18/19 Metoprolol Tartrate 50 mg PO DAILY 11/18/19 Simvastatin 80 mg PO DAILY 11/18/19 - Past Medical/Surgical History Has patient received pneumonia vaccine in the past: No Diabetic: No -: HTN -: 5- MA with stents -: anxiety -: neuropathy -: staph infection/MRSA May 2013 -: fungal infection fingernails/toe nails -: hyperlipidemia -: arthritis -: CVA in 2013 -: Double pneumonia -: L Eye vision loss -: torn meniscus in L knee has not been repaired -: cardiac stents X5 -: back injections chronic back pain - Family History Mother Medical History: Other (see notes) Notes: penumonia - Social History Smoking Status: Never smoker Alcohol use: No CD- Drugs: No Caffeine use: Yes Place of Residence: Home Review of Systems 10-point ROS is otherwise unremarkable Physical Examination - Vital Signs Temperature: 97.6 F Blood Pressure: 123/87 Pulse: 92 Respirations: 18 Pulse Ox (%): 99 - Physical Exam General: Alert, In no apparent distress, Oriented x3 HEENT: Atraumatic, PERRLA, Mucous membr. moist/pink, EOMI, Sclerae nonicteric Neck: Supple, 2+ carotid pulse no bruit, No LAD, Without JVD or thyroid abnormality Respiratory: Crackles/rales Cardiovascular: Regular rate/rhythm, Normal S1 S2, Systolic murmur Gastrointestinal: Normal bowel sounds, Soft and benign, Non-distended, No tenderness Musculoskeletal: No clubbing, No swelling, No tenderness Integumentary: No rashes Neurological: Normal gait, Normal speech, Normal strength at 5/5 x4 extr, Normal tone, Sensation intact, Cranial nerves 3-12 intact, Normal affect Lymphatics: No axilla or inguinal lymphadenopathy - Studies Laboratory Data (last 24 hrs) 11/18/19 11:45: Sodium 142, Potassium 4.1, BUN 22 H, Creatinine 1.63 H, Glucose 200 H, Magnesium 1.9 11/18/19 11:15: PT 18.4 H, INR 1.57 11/18/19 11:15: WBC 12.7 H, Hgb 14.0, Hct 41.5, Plt Count 274 Assessment & Plan - Problems (Diagnosis) (1) Syncope and collapse Current Visit: Yes Status: Acute (2) Ventricular tachycardia Current Visit: Yes Status: Acute (3) Chest pain Current Visit: Yes Status: Acute (4) Shortness of breath Current Visit: Yes Status: Acute (5) Cardiomyopathy Current Visit: Yes Status: Acute (6) History of stroke Current Visit: Yes Status: Acute (7) Coronary artery disease Current Visit: No Status: Acute (8) Pulmonary hypertension Current Visit: No Status: Acute (9) Hyperlipidemia Current Visit: No Status: Chronic Qualifiers: (10) Hypertension Current Visit: No Status: Chronic Qualifiers: - Plan 1. Start amiodarone drip 2. Serial troponins and EKG 2. Appreciate Cardiology consultation; will get records including Echocardiogram and stress test 4. Anti-platelet therapy, anti coagulation, statin, and O2 as needed 5. IV morphine for pain 6. Nitro p.r.n. 7. Strict blood pressure control 8. Monitor her blood sugars closely 9. Neuro monitoring 10. GI and DVT prophylaxis Patient be monitored in the ICU and will be inpatient admission. Discharge Plan: Home Plan to discharge in: Greater than 2 days - Advance Directives Does patient have a Living Will: No Does patient have a Durable POA for Healthcare: No - Code Status/Comfort Care Code Status Assessed: Yes Code Status: Full Code Critical Care: Yes Time Spent Managing PTS Care (In Minutes): 45
--- NOTE | 2019-11-19 09:31 | P.PN ---
Subjective Date of Service: 11/19/19 Subjective: No new changes Coughing has improved and his chest discomfort is improved. Currently he feels okay but he is a little sad from the fact that he may need further cardiac intervention. Patient going for cardiac catheterization today. Continue amiodarone drip and monitoring in the intensive care unit. Review of Systems 10-point ROS is otherwise unremarkable Physical Examination - Vital Signs Temperature: 97.6 F Blood Pressure: 123/87 Pulse: 92 Respirations: 18 Pulse Ox (%): 99 - Physical Exam General: Alert, In no apparent distress, Oriented x3 HEENT: Atraumatic Respiratory: Diminished, Crackles/rales Cardiovascular: Regular rate/rhythm, Normal S1 S2, Systolic murmur Gastrointestinal: Normal bowel sounds, Soft and benign, Non-distended, No tenderness Musculoskeletal: No clubbing, No tenderness, Swelling Neurological: Normal strength at 5/5 x4 extr, Sensation intact, Cranial nerves 3-12 intact - Studies Laboratory Data (last 24 hrs) 11/18/19 11:45: Sodium 142, Potassium 4.1, BUN 22 H, Creatinine 1.63 H, Glucose 200 H, Magnesium 1.9 11/18/19 11:15: PT 18.4 H, INR 1.57 11/18/19 11:15: WBC 12.7 H, Hgb 14.0, Hct 41.5, Plt Count 274 Medications List Reviewed: Yes Assessment & Plan - Problems (Diagnosis) (1) Syncope and collapse Current Visit: Yes Status: Acute (2) Ventricular tachycardia Current Visit: Yes Status: Acute (3) Chest pain Current Visit: Yes Status: Acute (4) Shortness of breath Current Visit: Yes Status: Acute (5) Cardiomyopathy Current Visit: Yes Status: Acute (6) History of stroke Current Visit: Yes Status: Acute (7) Coronary artery disease Current Visit: No Status: Acute (8) Pulmonary hypertension Current Visit: No Status: Acute (9) Hyperlipidemia Current Visit: No Status: Chronic Qualifiers: (10) Hypertension Current Visit: No Status: Chronic Qualifiers: - Plan 1. Start amiodarone drip 2. Troponin elevated; cardiac catheterization this morning. 2. Appreciate Cardiology consultation; will get records including Echocardiogram and stress test 4. Anti-platelet therapy, anti coagulation, statin, and O2 as needed 5. IV morphine for pain 6. Nitro p.r.n. 7. Strict blood pressure control 8. Monitor her blood sugars closely 9. Resume home medicines. Will evaluate to see if he is on an antidepressant 10. GI and DVT prophylaxis Discharge Plan: Home Plan to discharge in: Greater than 2 days - Advance Directives Does patient have a Living Will: No Does patient have a Durable POA for Healthcare: No - Code Status/Comfort Care Code Status: Full Code Critical Care: Yes Time Spent Managing PTS Care (In Minutes): 35
[2019-11-19] MEDS ORDERED: LACTULOSE 20 GM/30 ML UCUP PO PRN (09:32)
[2019-11-19] MEDS ORDERED: D5W 1,000 ML with NA BICARB 8.4% 50 MEQ IV SCH ×2 (10:00)
[2019-11-19] MEDS ORDERED: NA CHLORIDE 0.9% 0 ML ONE (10:46)
[2019-11-19] MEDS ORDERED: LIDOCAINE 1% 20 ML MDV ONE (10:46)
[2019-11-19] MEDS ORDERED: HEPA 1000U/500MLS 1,000 UNIT/500 ML BAG IV ONE (10:46)
[2019-11-19] MEDS ORDERED: ATROPINE SULF 1 MG/10 ML SYR IV ONE (10:46)
[2019-11-19] MEDS ORDERED: NA CHLORIDE 0.9% 1,000 ML ONE (11:03)
[2019-11-19] MEDS ORDERED: MIDAZOLAM HCL 2 MG/2 ML INJ ONE (11:38)
[2019-11-19] MEDS ORDERED: FENTANYL CITR 100 MCG/2 ML ONE (11:38)
[2019-11-19] MEDS ORDERED: ACETYLCYST 20% 4 ML VIAL IH ONE (11:39)
--- NOTE | 2019-11-19 12:18 | EKG ---
Test Date: 2019-11-18 Test Time: 13:55:16 Sheet Metal Worker Maintenance: JONATHAN MEASUREMENT RESULTS: Intervals: Rate: 107 NH: 170 QRSD: 138 QT: 372 QTc: 496 [place]: P: 54 NH: 170 QRS: 75 T: 44 INTERPRETIVE STATEMENTS: Sinus tachycardia Right bundle branch block Inferior infarct, age undetermined Cannot rule out Anterior infarct, age undetermined Abnormal ECG Compared to ECG 11/18/2019 11:11:12 Right bundle-branch block now present Atrial fibrillation no longer present Left-axis deviation no longer present Myocardial infarct finding still present Electronically Signed On 11-19-19 12:15:13 CDT by Aleksey Shah
--- NOTE | 2019-11-19 12:19 | EKG ---
Test Date: 2019-11-18 Test Time: 11:11:12 Biological Plant Operator: KYUNG MEASUREMENT RESULTS: Intervals: Rate: 176 AL: QRSD: 118 QT: 312 QTc: 534 [place]: P: AL: QRS: -58 T: 99 INTERPRETIVE STATEMENTS: Atrial fibrillation with rapid ventricular response Left axis deviation Inferior-posterior infarct, possibly acute ACUTE PR Consider right ventricular involvement in acute inferior infarct Abnormal ECG Compared to ECG 11/20/2018 20:39:14 Left-axis deviation now present Sinus tachycardia no longer present Ventricular premature complex(es) no longer present Right bundle-branch block no longer present Myocardial infarct finding still present Electronically Signed On 11-19-19 12:15:16 CDT by Aleksey Shah
--- NOTE | 2019-11-19 12:31 | CON ---
Date of Consultation: 11/18/2019 Reason For Consultation: Cardiac arrest, status post ventricular tachycardia, and history of CAD and CHF. History Of Present Illness: Mr. Reeder is a 59-year-old white male. He is very well known to me fro m a long history of coronary artery disease, previous heart catheterizations in the past. He has a h istory of CAD, status post multiple stents. He has a history of CVA, congestive heart failure that i s chronic systolic. He has a history of hypertension, dyslipidemia, has had MRSA in the past. Has h ad a history of pneumonia. Has also had paroxysmal atrial fibrillation. He recently in the office h ad an echocardiogram that showed an ejection fraction about 40% to 45% and had a fixed anteroapical a nd lateral large defect on the stress test with an ejection fraction of 21%. He had come to my offic e for results and had a cardiac arrest in my office that was transient. EKG immediately post arrest showed rapid ventricular tachycardia. He was emergently sent to the emergency room where he was plac ed on IV amiodarone and converted back to sinus rhythm. He was hemodynamically stable when he left. He never had any symptoms prior to his cardiac arrest. He had denied any chest pain, shortness of b reath, nausea, vomiting, diaphoresis, PND, orthopnea, pedal edema, palpitation, or syncope prior to m y office visits. Allergies: DEMEROL. Review of Systems: Negative. Social History: Negative. Family History: On his parent's side, his brother has CAD. Medications: At home include Xarelto, Entresto, metoprolol, and simvastatin. Physical Examination: In the emergency room; Vital Signs: His blood pressure was 130/80, his pulse was 90, in sinus rhythm, he was afebrile. HEENT: Negative. Neck: Supple with no bruit. Chest: Clear. On the right, he has some rales; on the left cardiac exam revealed regular rhythm and rate, with a tricuspid regurgitation murmur. No gallops or rubs. Abdomen: Benign. Extremities: Revealed no clubbing, cyanosis, or edema. Diagnostic Data: His initial creatinine was 1.63. His white count was 12.7. His INR was 1.57. His troponin was elevated at 4.98. His glucose was 200. BNP was 2771. Chest x-ray showed mild failure . Second EKG showed sinus rhythm with nonspecific ST-T wave changes. Impression And Plan: Cardiac arrest, secondary to ventricular tachycardia secondary to congestive he art failure and coronary artery disease. The patient needs to be on Lovenox. We need to hold his Xa relto. We will keep him on IV amiodarone. We will probably switch him to p.o. amiodarone. I will d o a heart catheterization on him tomorrow to define his coronary anatomy. He may be a good candidate for defibrillator and biventricular pacemaker. Regarding his congestive heart failure that is chron ic systolic, I think he may be having an acute exacerbation. He is already on Lasix, metoprolol, and Entresto. We may have to go up on the Entresto dose while watching his creatinine level. His other problems including hypertension, dyslipidemia, and history of cerebrovascular accident seemed to be stable. The patient understands the risk and the benefits of the procedure and he agrees to proceed. FORREST/FRANCISCO JAVIER Voice ID: [id number] Report ID: [id number]
--- NOTE | 2019-11-19 13:02 | ECHO ---
HEIGHT: 5 ft 7 in WEIGHT: 202 lb 0 oz DATE OF STUDY: 11/19/[address]: Ashley Callahan MD 2-DIMENSIONAL: YES M.MODE: YES DOPPLER: YES COLOR FLOW: YES TDS: PORTABLE: DEFINITY: BUBBLE STUDY: DIAGNOSIS: VENTRICULAR TACHYCARDIA CARDIAC HISTORY: CATHERIZATION: YES SURGERY: NO PROSTHETIC VALVE: NO PACEMAKER: NO MEASUREMENTS (cm) DIASTOLIC (NORMALS) SYSTOLIC (NORMALS) IVSd 1.2 (0.6-1.2) LA Diam 4.2 (1.9-4.0) LVEF 30-35% LVIDd 5.2 (3.5-5.7) LVIDs 4.1 (2.0-3.5) %FS % LVPWd 1.0 (0.6-1.2) Ao Diam 2.6 (2.0-3.7) 2 DIMENSIONAL ASSESSMENT: RIGHT ATRIUM: LEFT ATRIUM: RIGHT VENTRICLE: LEFT VENTRICLE: TRICUSPID VALVE: MITRAL VALVE: MITRAL ANNULAR CALCIFICATION PULMONIC VALVE: AORTIC VALVE: NORMAL PERICARDIAL EFFUSION: AORTIC ROOT: LEFT VENTRICULAR WALL MOTION: SEVERE GLOBAL HYPOKINESIS. INTERIOR POSTERIOR AKINESIS. DOPPLER/COLOR FLOW: MILD TRICUSPID REGURGITATION. COMMENTS: INTERIOR POSTERIOR AKINESIS. GLOBAL SEVERE HYPOKINESIS. LEFT ATRIAL ENLARGEMENT. MILD TRICUSPID REGURGITATION. NORMAL RIGHT VENTRICULAR SYSTOLIC PRESSURE. TECHNOLOGIST: [*]
[2019-11-19] MEDS: MORPHINE 4 MG/ML SYR IV PRN ×2 (13:09→19:45)
[2019-11-19] MEDS: BENZONATATE 100 MG CAP PO PRN (13:09)
[2019-11-19] MEDS ORDERED: BENZONATATE 100 MG CAP PO ONE (13:19)
[2019-11-19] MEDS ORDERED: MORPHINE 4 MG/ML SYR ONE ×2 (13:20→19:57)
[2019-11-19] MEDS ORDERED: NITROGLYCERIN 0.4 MG/TAB SL PRN (14:00)
[2019-11-19] MEDS ORDERED: ACETYLCYST 20% 800 MG/4 ML VIAL PO ONE (14:00)
[2019-11-19 16:11] VITALS: TEMP 98.1
[2019-11-19 18:51] VITALS: O2SAT 100
[2019-11-19 20:03] VITALS: BP 125/79
[2019-11-19] MEDS ORDERED: ACETYLCYST 20% 800 MG/4 ML VIAL PO SCH (21:00)
[2019-11-19] MEDS ORDERED: ATORVASTATIN 40 MG TAB PO SCH (21:00)
[2019-11-19] MEDS ORDERED: AMITRIPTYLINE 10 MG TAB PO SCH (21:00)
--- NOTE | 2019-11-20 04:44 | OP ---
Date of Procedure: 11/19/2019 Surgeon: Aleksey Shah MD Hardwood Floor Installation Helper: Dawson Lindsay. Procedure: Left heart catheterization, selective coronary arteriogram, and a left ventriculogram. Indication: Status post cardiac arrest, ventricular tachycardia, CAD, and CHF. Description Of Procedure: Mr. Reeder is a 59-year-old male. He was brought to the emergency room fo llowing a cardiac arrest in my office yesterday. He had known CAD, CHF, recent abnormal stress test and echocardiogram. The patient was brought to the emergency room, given IV amiodarone, converted to sinus rhythm. Troponin was 5. He was brought to the builder's labourer on 11/19/2019 for heart catheterizati on. He was prepped and draped in the routine sterile fashion, given Versed for sedation. A 6-Swedish sheath was introduced in the right common femoral artery successfully using the Seldinger technique and 10 cc of Xylocaine. StarClose was used to close the procedure. Angiography in the groin area wa s normal. Padmini catheter left and right and a pigtail were used to do the procedure. He had a arturo y big left main without any stenosis. He had sequential stenosis in the proximal circumflex with a n ormal obtuse marginal. He was left dominant. His LAD had about an 80% proximal stenosis. He had a 99% mid stenosis with a JARETH-1 flow in the LAD. His RCA was completely occluded that was determined using a JR4 catheter. The pigtail catheter was then introduced in the left ventricle. Angiography t here showed an ejection fraction about 25% with inferoposterior akinesis and global hypokinesis. The patient tolerated the procedure well. Complications: There were no complications. Blood Loss: 5 mL. Anesthesia: Total conscious sedation was 45 minutes. Final Diagnoses: Severe coronary artery disease, severe congestive heart failure. Plan: The patient needs coronary artery bypass surgery. The patient will be transferred to Dr. Felicity Cordon at [facility] today for a rather urgent surgery. The patient had taken Xarelto about 48 hours. He had been on Lovenox since he has been here. He has been in sinus rhythm. The ca se was discussed in detail with him and his . NB/MODL Voice ID: [id number] Report ID: [id number]
[2019-11-20] MEDS ORDERED: HOME MED 1 EA UNK (Simvastatin [Simvastatin] 80 MG) PO SCH (09:00)
== END 2019-11-19 19:55 | disposition short-term general hospital (02) | DRG 286 ==
LOC: ER 11:10 → ERHOLD 13:31
PROVIDERS: ADMIT Hospitalist; ATTEND Hospitalist
PROC: 4A023N7 Measurement of Cardiac Sampling and Pressure, Left Heart, Percutaneous Approach (ICD-10-PCS; principal; 2019-11-19)
PROC: B2111ZZ Fluoroscopy of Multiple Coronary Arteries using Low Osmolar Contrast (ICD-10-PCS; 2019-11-19)
PROC: B2151ZZ Fluoroscopy of Left Heart using Low Osmolar Contrast (ICD-10-PCS; 2019-11-19)
DX: I25.10 Atherosclerotic heart disease of native coronary artery without angina pectoris (principal); I46.2 Cardiac arrest due to underlying cardiac condition; I47.2 Ventricular tachycardia; I50.22 Chronic systolic (congestive) heart failure; I42.9 Cardiomyopathy, unspecified; I11.0 Hypertensive heart disease with heart failure; I27.20 Pulmonary hypertension, unspecified; E78.5 Hyperlipidemia, unspecified; G89.29 Other chronic pain; M54.9 Dorsalgia, unspecified; R07.9 Chest pain, unspecified; R55 Syncope and collapse; Z86.73 Personal history of transient ischemic attack (TIA), and cerebral infarction without residual deficits; Z79.899 Other long term (current) drug therapy; Z95.5 Presence of coronary angioplasty implant and graft; Z79.01 Long term (current) use of anticoagulants; Z86.14 Personal history of Methicillin resistant Staphylococcus aureus infection; Z88.5 Allergy status to narcotic agent
CPT/HCPCS: 36415; 71045; 80048; 83735; 83880; 84484; 85025; 85610; 93005; 93306; 93458; 96365; 96366; 99284; C1893; J0282; J0583; J082; J1644; J1650; J1940; J2250; J2405; J3010; J7030; J7060